=== PATIENT | male | born 1945 | race African-American/Black ===

== ENCOUNTER 2016-06-17 16:10 | Observation (INO) | payer MEDICARE, OTHER ==
[~2016-06-17 16:10] MED LIST: ALDACTONE25 MG PO; ASPIRIN325 MG PO; BENADRYL25 MG PO; BYSTOLIC5 MG PO; GARLIC1 CAP PO; GEMFIBROZIL600 MG PO; K-DUR20 MEQ PO; K-TAB10 MEQ PO; KLOR-CON 1010 MEQ PO; LEVAQUIN750 MG PO; MOBIC7.5 MG PO; MULTIPLE VITAMI1 TA1 PO; NEXIUM40 MG PO; OMEGA 3 FISH OI1 CAP PO; PROVENTIL/2.5 MG/3 M INH; TYLENOL325 MG PO; VITAMIN D31000 UNIT PO; ZOCOR40 MG PO
[2016-06-17 17:04] LABS: HEMATOCRIT 39.5 % (42.0-54.0); MCH 33.8 pg (26.0-34.0); MCHC 35.4 g/dL (31.0-37.0); MCV 95.4 fL (80.0-100.0); MEAN PLATELET VOLUME 10.8 fL (7.4-10.4); PLATELET COUNT 161 10x3/uL (130-400); RBC 4.14 10x6/uL (4.20-6.10); RDW 12.9 % (11.5-14.5); WBC 2.7 10x3/uL (4.8-10.8)
[2016-06-17 17:30] LABS: ALBUMIN 3.6 g/dL (3.4-5.0); ALKALINE PHOSPHATASE 62 U/L (46-116); ALT (SGPT) 34 U/L (10-68); BILIRUBIN - TOTAL 0.46 mg/dL (0.2-1.3); CALC OSMOLALITY 283 mosm/kg (275-300); CALCIUM 10.3 mg/dL (8.5-10.1); CARBON DIOXIDE 24.4 mmol/L (21.0-32.0); CHLORIDE - SERUM 104 mmol/L (98-107); CREATININE - SERUM 1.5 mg/dL (0.6-1.3); GLUCOSE 92 mg/dL (74-106); POTASSIUM - SERUM 3.2 mmol/L (3.5-5.1); PROTEIN - SERUM 7.9 g/dL (6.4-8.2); SODIUM 142 mmol/L (136-145); UREA NITROGEN 14 mg/dL (7-18); eGFR NON AFRICAN AMERICAN 49 mL/min (90-120)
[2016-06-17 17:41] LABS: CHOL - HDL RATIO 2.6 ratio (2.3-4.9); CHOLESTEROL, TOTAL 248 mg/dL (0-200); CKMB 0.3 U/L (0.0-3.6); CREATINE KINASE 71 UL (21-232); HDL CHOLESTEROL 95 mg/dL (32-96); LDL CHOLESTEROL 128 mg/dL (0-100); LDL-HDL RATIO 1.3 ratio (1.5-3.5); TRIGLYCERIDE 128 mg/dL (30-200); TROPONIN-I < 0.017 ng/mL (0.000-0.060)
[2016-06-17 17:51] LABS: BASOPHILS 1 % (0-2); LYMPHOCYTES 30 % (15-50); MONOCYTES 3 % (2-11); NEUTROPHILS 66 % (40-80); PLATELET ESTIMATE DECREASED
[2016-06-17 18:01] LABS: APPEARANCE CLEAR (CLEAR); BILIRUBIN NEGATIVE (NEGATIVE); COLOR YELLOW (YELLOW); GLUCOSE NEGATIVE (NEGATIVE); KETONE NEGATIVE (NEGATIVE); LEUKOCYTE ESTERASE TRACE (NEGATIVE); NITRITE NEGATIVE (NEGATIVE); PROTEIN TRACE mg/dL (NEGATIVE); UROBILINOGEN NORMAL (NORMAL)
[2016-06-17 18:02] LABS: BACTERIA MODERATE /hpf (NONE SEEN); EPITHELIAL CELLS 0-5 /hpf (0-5); HYALINE CAST 0-5 /lpf (NONE SEEN); MUCUS >1+ /lpf (NONE SEEN); RED CELLS - URINE 0-5 /hpf (0-5); WHITE CELLS - URINE 0-5 /hpf (0-5)
[2016-06-17] MEDS ORDERED: PLAVIX75 MG PO (23:46)
[2016-06-18 05:48] LABS: TROPONIN-I 0.028 ng/mL (0.000-0.060)
== END 2016-06-18 11:50 | disposition home or self-care (01) ==
LOC: D.ER 16:10 → D.M2 22:09
PROVIDERS: Emergency Medicine; Nurse Practitioner Family; ADMIT Internal Medicine Interventional Cardiology
DX: R07.89 Other chest pain (principal); I10 Essential (primary) hypertension; Z86.73 Personal history of transient ischemic attack (TIA), and cerebral infarction without residual deficits; K21.9 Gastro-esophageal reflux disease without esophagitis; Z87.891 Personal history of nicotine dependence

== ENCOUNTER → 2016-07-15 08:34 | Outpatient (CLI) | payer MEDICARE, OTHER ==
[2016-06-18 00:12] VITALS: BMI 25.8
[~2016-07-15 08:34] MED LIST changes: +PLAVIX75 MG PO
== END | disposition home or self-care (01) ==
LOC: D.RAD 08:34
DX: K59.00 Constipation, unspecified (principal)

== ENCOUNTER 2017-04-18 17:28 | Emergency (ER) | payer MEDICARE, OTHER ==
[2016-06-18 00:12] VITALS: BMI 25.8
[2017-04-18 18:35] LABS: APPEARANCE CLEAR (CLEAR); BILIRUBIN NEGATIVE (NEGATIVE); COLOR YELLOW (YELLOW); GLUCOSE NEGATIVE (NEGATIVE); KETONE NEGATIVE (NEGATIVE); NITRITE NEGATIVE (NEGATIVE); PROTEIN TRACE mg/dL (NEGATIVE); SPECIFIC GRAVITY 1.015 (1.005-1.020); UROBILINOGEN NORMAL (NORMAL)
[2017-04-18 18:37] LABS: HEMATOCRIT 37.8 % (42.0-54.0); HEMOGLOBIN 13.5 g/dL (13.5-17.5); MCH 34.4 pg (26.0-34.0); MCHC 35.7 g/dL (31.0-37.0); MCV 96.4 fL (80.0-100.0); MEAN PLATELET VOLUME 10.3 fL (7.4-10.4); PLATELET COUNT 137 10x3/uL (130-400); RBC 3.92 10x6/uL (4.20-6.10); WBC 2.9 10x3/uL (4.8-10.8)
[2017-04-18 18:52] LABS: ALBUMIN 3.8 g/dL (3.4-5.0); BILIRUBIN - TOTAL 0.74 mg/dL (0.2-1.3); CALCIUM 9.7 mg/dL (8.5-10.1); CARBON DIOXIDE 23.6 mmol/L (21.0-32.0); CREATININE - SERUM 1.4 mg/dL (0.6-1.3); POTASSIUM - SERUM 3.6 mmol/L (3.5-5.1); PROTEIN - SERUM 8.1 g/dL (6.4-8.2)
[2017-04-18 19:11] LABS: EOSINOPHILS 5 % (0-7); LYMPHOCYTES 34 % (15-50); MONOCYTES 3 % (2-11); NEUTROPHILS 58 % (40-80); PLATELET ESTIMATE NORMAL
== END 2017-04-18 22:53 | disposition home or self-care (01) ==
LOC: D.ER 17:28
PROVIDERS: Family Medicine
DX: R53.1 Weakness (principal); R00.0 Tachycardia, unspecified; I44.0 Atrioventricular block, first degree; I49.3 Ventricular premature depolarization

== ENCOUNTER 2017-04-22 11:10 | Outpatient (CLI) | payer MEDICARE, OTHER ==
--- NOTE | ~2017-04-22 | HEMODYNAMI ---
PATIENT:LIAM KRAUS MEDICAL RECORD: [id number] : 43 LOCATION:[facility] ([place] ADMISSION DATE: 04/22/17 Generatedon:04/22/201713:44 Patient name: LIAM KRAUS Patient #: [id number] SSN: DO B: 1945 Date of study: 04/22/2017 Page: Of Hemodynamic Procedure Report Patient Data Patient Demographics Procedure consent was obtained First Name: LIAM Gender: Male Last Name: NAYANA : 1945 Middle Initial: A Age: 71 year(s) Patient #: [id number] Race: Black Additional ID: [id number] Contact details [address]: [address] [place] [address] State: [place] City: [place] Zip code: [address] Past Medical History Allergies: No known allergies Admission Admission Data Admission Date: 04/22/2017 Admission Time: 9:07 Admit Source: Other Procedure Procedure Types Cath Procedure Diagnostic Procedure LHC LH w/Coronaries Sedation Charges Moderate Sedation up to 30 minutes PCI Procedure Coronary Stent Coronary Stent Initial Procedure Description Procedure Date Procedure Date: 04/22/2017 Procedure Start Time: 13:07 Procedure End Time: 13:42 Procedure Staff Name Function Tesfaye Rutherford MD Performing Physician Sade Lawrence RT Monitor Jorge Luis Meraz RT Scrub Anthony Haywood RN Nurse Procedure Data Cath Procedure Fluoroscopy Diagnostic fluoroscopy Total fluoroscopy Time: 5.8 time: 5.8 min min Diagnostic fluoroscopy Total fluoroscopy dose: 861 dose: 861 mGy mGy Contrast Material Contrast Material Type Amount (ml) Isovue 300 108 Entry Location Entry Primary Successful Side Size Upsize Upsize Entry Closure Smiley ccessful Closure Location (Fr) 1 (Fr) 2 (Fr) Remarks Device Remarks Radial Right 6 Fr Mechanical TR band artery Short Compression Femoral Right 5 Fr 6 Fr Exoseal artery Short Estimated blood loss: 10 ml Diagnostic catheters Device Type Used For End Catheter Placement DIAGNOSTIC Chepe 110cm Procedure 5Fr catheter ([id number]) MULTIPACK JL 4.0 5Fr Procedure catheter MULTIPACK 3DRC 5Fr Procedure catheter MULTIPACK Pigtail 5 Fr Ventriculography catheter Procedure Complications No complications Procedure Medications Medication Administration Route Dosage Oxygen NC 2 l/min Lidocaine 2% added to field 20 Heparin Flush Bag added to field 2 bags (1000units/500ml NS) 0.9% NaCl I.V. 100 ml/hr Radial Cocktail I.A. 1 syringe (Verapomil 2mg/Nitro 400mcg/Heparin 1500units) Versed I.V. 1 mg Fentanyl I.V. 50 mcg Versed I.V. 1 mg Fentanyl I.V. 50 mcg Angiomax (bolus) I.V. 13 ml Angiomax Drip I.V. drip 29.4 ml/hr (250mg/50ml NS) (Standard) Lopressor I.V. 5 mg Angiomax Drip 29.4 ml/hr (250mg/50ml NS) (Standard) Hemodynamics Rest Heart Rate: 66 (bpm) Pressure Samples Time Site Value (mmHg) Purpose Heart Use Rate(bpm) 13:20 LV 87/-4,3 EDP 58 Snapshots Pre Cath Intra NCS Post Cath Vital Signs Time Heart Resp SPO2 etCO2 NIBP (mmHg) Rhythm Pain Sedation Rate (ipm) (%) (mmHg) Status Level (bpm) 12:46:00 93 23 98 25.6 181/109(165) NSR 0 (11) 10(A) , No pain 12:50:24 65 16 100 30.9 148/88(123) NSR 0 (11) 10(A) , No pain 12:54:42 65 15 100 34 133/80(107) NSR 0 (11) 10(A) , No pain 12:58:58 64 14 100 33.2 144/74(121) NSR 0 (11) 10(A) , No pain 13:03:12 64 14 100 30.9 148/87(120) NSR 0 (11) 10(A) , No pain 13:07:32 60 14 100 32.4 145/74(125) NSR 0 (11) 10(A) , No pain 13:11:57 71 14 98 30.2 89/60(75) NSR 0 (11) 9(A) , No pain 13:15:56 100 11 97 24.9 103/69(84) NSR 0 (11) 10(A) , No pain 13:19:58 68 11 98 30.9 121/78(93) NSR 0 (11) 10(A) , No pain 13:24:08 66 11 99 30.9 121/78(97) NSR 0 (11) 10(A) , No pain 13:28:16 96 18 99 31.7 119/83(99) NSR 0 (11) 10(A) , No pain 13:32:23 76 15 100 28.7 120/76(95) NSR 0 (11) 10(A) , No pain 13:36:27 96 14 100 29.4 129/92(114) NSR 0 (11) 10(A) , No pain 13:40:37 63 14 100 30.2 133/85(114) NSR 0 (11) 10(A) , No pain Medications Time Medication Route Dose Verified Delivered Reason Notes Effectiveness by by 12:50:00 Heparin Flush added to field 2 bags Tesfaye Tesfaye used for Bag Krish Rutherford MD procedure (1000units/500ml NS) 12:50:09 0.9% NaCl I.V. 100 Tesfaye Buffie Per physi ayad ml/hr Krish Haywood RN, MD 12:50:48 Oxygen NC 2 l/min Tesfaye Buffie used for Krish Haywood RN procedure 12:50:54 Lidocaine 2% added to field 20ml Tesfaye Tesfaye for local vial Krish Rutherford MD anesthetic 13:04:06 Versed I.V. 1 mg Tesfaye Buffie for sedat ion Krish Haywood RN, MD 13:04:13 Fentanyl I.V. 50 mcg Tesfaye Buffie for sedat ion Krish Haywood RN, MD 13:09:15 Radial Cocktail I.A. 1 Tesfaye Tesfaye for (Verapomil syringe Krish Rutherford MD vasodilation 2mg/Nitro MD 400mcg/Heparin 1500units) 13:15:09 Versed I.V. 1 mg Tesfaye Buffie for sedat ion Krish Haywood RN, MD 13:15:13 Fentanyl I.V. 50 mcg Tesfaye Buffie for sedat ion Krish Haywood RN, MD 13:24:44 Angiomax (bolus) I.V. 13 ml Tesfaye Buffie for Krish Haywood RN anticoagulation 13:25:44 Angiomax Drip I.V. drip 29.4 Tesfaye Buffie for (250mg/50ml NS) ml/hr Krihs Haywood RN anticoagulation (Standard) 13:34:55 Lopressor I.V. 5 mg Tesfaye Buffie Per physi ayad Krish Haywood RN, MD 13:39:34 Angiomax Drip I.V. 29.4 Tesfaye Buffie for (250mg/50ml NS) drip-discontinued ml/hr Krish Haywood RN anticoagulation (Standard) Procedure Log Time Note 12:13:20 Informed consent obtained and on chart 12:13:23 Admit Source: Other 12:13:46 Anthony Haywood RN sent for patient. Start room use. 12:13:48 Time tracking: Regular hours 12:13:51 Plan of Care:Hemodynamics will remain stable., Cardiac rhythm will remain stable., Comfort level will be maintained., Respiratory function will remain adequate., Patient/ family verbilizes understanding of procedure., Procedure tolerated without complication., Recovers from procedure without complications.. 12:14:06 H&P Date Dictated: 04/22/2017 New H&P dictated by physician.. 12:34:31 Patient received from ED to CCL 2 Alert and oriented. Tansferred to table in Supine position. 12:34:32 Warm blankets applied, and annalisa hugger turned on for patient comfort. 12:34:32 Correct patient and procedure confirmed by team. 12:34:33 ECG and BP/O2 sat monitors applied to patient. 12:34:35 Pre-procedure instructions explained to patient. 12:34:35 Pre-op teaching completed and patient verbalized understanding. 12:34:36 Family in waiting room. 12:34:40 Patient NPO since Breakfast. 12:35:51 Patient allergic to No known allergies 12:35:53 Is the patient allergic to Iodine/contrast media? No. 12:35:59 Is patient on blood thinner?Yes 12:36:01 ACC The patient was administered the following blood thiners within the last 24 hours: ACCPlavix 12:36:03 Patient diabetic? No. 12:36:05 Previous problem with sedation/anesthesia? No ? 12:36:06 Snore? Yes 12:36:07 Sleep apnea? No 12:36:08 Deviated septum? No 12:36:08 Opens mouth fully? Yes 12:36:09 Sticks out tongue? Yes 12:36:11 Airway obstruction? No ? 12:36:16 Dentures? Yes partial in tight 12:42:27 Pre procedure: right dorsailis pedis pulse 2+ Normal; easily identifiable; not easily obliterated 12:42:29 Modified Benjamin's test Ulnar < 7 seconds 12:42:31 Patient pain scale 0/10 ?. 12:42:41 IV patent on arrival in left antecubital with 0.9% NaCl at [facility]. 12:42:46 Lab results completed and on chart. 12:42:50 Right Radial & Right Groin area was prepped with chlora-prep and draped in sterile fashion 12:42:51 Alarms reviewed by R. N. 12:42:51 Sharps counted by scrub and verified by R.N. 12:42:55 Use device set Radial Dx or PCI 12:42:56 ACIST Syringe (04118) opened to sterile field. 12:42:56 Medline Cath Pack ([id number]) opened to sterile field. 12:42:57 Bag Decanter (2002S) opened to sterile field. 12:42:58 SHEATH 6FR Slender ([id number]) opened to sterile field. 12:42:58 DIAGNOSTIC WIRE .035 260cm J wire (075730) opened to sterile field. 12:42:59 ACIST Hand Control (57061) opened to sterile field. 12:42:59 ACIST Manifold (96061) opened to sterile field. 12:43:00 Tegaderm 4 x 4 (1626W) opened to sterile field. 12:43:01 MBrace Wrist Support ([id number]) opened to sterile field. 12:44:45 Vital chart was started 12:44:48 Rhythm: sinus rhythm 12:44:50 Full Disclosure recording started 12:44:53 Baseline sample Acquired. 12:50:00 Heparin Flush Bag (1000units/500ml NS) 2 bags added to field was administered by Tesfaye Rutherford MD; used for procedure; 12:50:09 0.9% NaCl 100 ml/hr I.V. was administered by Anthony Haywood RN; Per physician; 12:50:48 Oxygen 2 l/min NC was administered by Anthony Haywood RN; used for procedure; 12:50:54 Lidocaine 2% 20ml vial added to field was administered by Tesfaye Rutherford MD; for local anesthetic; 12:59:31 Zero performed for pressure channel P1 12:59:49 Zero performed for pressure channel P1 12:59:58 Physician paged 13:03:20 Physician arrived 13:03:21 --------ALL STOP TIME OUT------ 13:03:22 Final Timeout: patient, procedure, and site verified with staff and physician. All members of the team are in agreement. 13:03:27 Right Radial & Right Groin site verified by team. 13:03:32 Physical assessment completed. ASA score P 2 - A patient with mild systemic disease as per Tesfaye Rutherford MD. 13:03:36 Sedation plan: IV Moderate Sedation Medication:Versed, Fentanyl 13:03:54 Procedure started. 13:04:06 Versed 1 mg I.V. was administered by Anthony Haywood RN; for sedation; 13:04:13 Fentanyl 50 mcg I.V. was administered by Anthony Haywood RN; for sedation; 13:07:05 Local anesthetic to right radial artery with Lidocaine 2% by Tesfaye Rutherford MD.INITIAL ACCESS ONLY 13:08:23 A 6 Fr Short sheath was inserted into the Right Radial artery 13:09:15 Radial Cocktail (Verapomil 2mg/Nitro 400mcg/Heparin 1500units) 1 syringe I.A. was administered by Tesfaye Rutherford MD; for vasodilation; 13:09:20 A DIAGNOSTIC Chepe 110cm 5Fr catheter (905245) was advanced over the wire and used for Procedure. 13:11:25 Catheter removed. 13:11:55 unable to cannulate through the arm. 13:12:21 Local anesthetic to right femoral artery with Lidocaine 2% by Tesfaye Rutherford MD.ADDITIONAL ACCESS 13:12:27 SHEATH 5FR [place] (HQE437) opened to sterile field. 13:12:49 Use device set Multipack Set 13:12:51 DIAGNOSTIC Multipack 5Fr catheter set ([id number]) opened to sterile field. 13:13:13 Access obtained with 4Fr micropunture. 13:13:25 A 5 Fr sheath was inserted into the Right Femoral artery 13:13:56 MICROPUNCTURE 4FR Cook (Z97863) opened to sterile field. 13:14:46 A MULTIPACK JL 4.0 5Fr catheter was advanced over the wire and used for Procedure. 13:14:52 LCA angiography performed. 13:15:09 Versed 1 mg I.V. was administered by Anthony Haywood RN; for sedation; 13:15:13 Fentanyl 50 mcg I.V. was administered by Anthony Haywood RN; for sedation; 13:16:34 Catheter removed. 13:16:44 A MULTIPACK 3DRC 5Fr catheter was advanced over the wire and used for Procedure. 13:16:50 RCA angiography performed. 13:19:35 Catheter removed. 13:19:43 A MULTIPACK Pigtail 5 Fr catheter was advanced over the wire and used for Ventriculography. 13:19:56 LV gram done using DUPREE 13:21:22 EF : 50 % 13:21:24 Catheter removed. 13:23:00 BMW 190cm [place] 2 J wire ([id number]) opened to sterile field. 13:23:01 COPILOT Valve Control (1364919) opened to sterile field. 13:23:01 GUIDE 6FR XBLAD 4.0 catheter ([id number]) opened to sterile field. 13:23:02 INFLATOR Merit BasixCompak (FQ6731) opened to sterile field. 13:23:03 SHEATH 6FR [place] (YJP484) opened to sterile field. 13:23:16 Proceeding to intervention. 13:23:29 Sheath upsized to a 6 Fr Short. 13:23:45 6 Fr XBLAD 4 guide catheter was inserted over the wire 13:24:44 Angiomax (bolus) 13 ml I.V. was administered by Anthony Haywood RN; for anticoagulation; 13:25:18 BMW wire advanced. 13:25:44 Angiomax Drip (250mg/50ml NS) (Standard) 29.4 ml/hr I.V. drip was administered by Anthony Haywood RN; for anticoagulation; 13:28:15 Inflation number: 1 A EUPHORA 3.0 x 20 Balloon ([id number]) was prepped and advanced across the Mid LAD, then inflated to 8 PASCUAL for 0:20 (min:sec). 13:28:44 Balloon removed over the wire. 13:32:33 Inflation Number: 1 A JACINTO RX 4.0 x 22 stent ([id number]) was prepped and advanced across the Mid LAD1. The stent was deployed at 13 PASCUAL for 0:10 (min:sec). 13:32:44 Stent catheter was removed intact over wire. 13:33:29 Wire removed. 13:33:39 Guide catheter removed. 13:34:55 Lopressor 5 mg I.V. was administered by Anthony Haywood RN; Per physician; 13:36:23 TR BAND Standard ([id number]) opened to sterile field. 13:36:36 EXOSEAL 6Fr (EX600) opened to sterile field. 13:36:59 Sheath removed intact; hemostasis achieved with Exoseal to the Right Femoral artery. 13:38:32 Sheath removed intact; hemostasis achieved with Mechanical Compression to the Right Radial artery. 13:38:35 Procedure ended.(Physican Out) 13:38:48 Fluoroscopy time 05.80 minutes. 13:38:53 Flurop Dose total: 861 13:38:53 Fluoroscopy dose: 861 mGy 13:38:58 Contrast amount:Isovue 300 108ml. 13:39:00 Sharps counted by scrub and verified by R.N. 13:39:07 TR band inflated with 10cc of air. 13:39:12 Insertion/operative site no bleeding no hematoma. 13:39:34 Angiomax Drip (250mg/50ml NS) (Standard) 29.4 ml/hr I.V. drip-discontinued was administered by Anthony Haywood RN; for anticoagulation; 13:40:10 Post-op/insertion site Right Femoral artery dressed using a 4 x 4 and Tegaderm. 13:40:18 Post right femoral artery:stable 13:40:21 Post Procedure Pulses reassessed and unchanged 13:40:25 Post-procedure physical assessment completed. ASA score P 2 - A patient with mild systemic disease as per Tesfaye Rutherford MD. 13:40:29 Post procedure rhythm: sinus rhythm 13:40:32 Estimated blood loss: 10 ml 13:40:33 Post procedure instruction explained to patient.Patient verbalizes understanding. 13:41:39 Procedure type changed to Cath procedure, Diagnostic procedure, LHC, LHC w/Coronaries, Sedation Charges, Moderate Sedation up to 30 minutes, PCI procedure, Coronary Stent, Coronary Stent Initial 13:41:40 Procedure and supply charges have been captured, reviewed, submitted and are correct. 13:42:13 Procedure Complication : No complications 13:42:15 Vital chart was stopped 13:42:16 See physician's report for complete and final results. 13:42:18 Report given to Pre/Post Procedure Room. 13:42:21 Patient transfered to Pre/Post Procedure Room with Stretcher. 13:42:24 Procedure ended. 13:42:24 Full Disclosure recording stopped 13:42:27 End room use (Document Last) Intervention Summary Intervention Notes Time ActionType Lesion and Equipment Used Action# Pressure Duration Attributes 13:28:15 Inflate Mid LAD EUPHORA 3.0 x 1 8 00:20 balloon 20 Balloon ([id number]) 13:32:33 Place stent Mid LAD1 JACINTO RX 4.0 x 1 13 00:10 22 stent ([id number]) Device Usage Item Name Manufacture Quantity Catalog [facility] Lot# / Number Charge Number Stock Stock Serial# Code ACIST Syringe Acist 1 40350 220727 670828 211812 20 (82592) Medical Systems Inc Medline Cath Cardinal 1 [id number] 954543 21995 399301 5 [facility] ([id number]) Bag Decanter Microtek 1 2001S 457998 43327 281490 5 (2001S) Medical Inc. SHEATH 6FR Terumo 1 [id number] 912705 630839 524631 40 Slender ([id number]) DIAGNOSTIC [address] 1 103313 408426 847362 437068 30 WIRE .035 260cm J wire (148744) ACIST Hand Acist 1 56633 470018 115228 966515 5 Control Medical (84173) Systems Inc ACIST Manifold Acist 1 48825 837167 086012 941501 5 (93783) Medical Systems Inc Tegaderm 4 x 4 3M 1 1626W 593893 975588 810688 5 (1626W) MBrace Wrist Advanced 1 140-0250-00 366219 56499 445166 5 Support Vascular ([id number]) Dynamics DIAGNOSTIC Terumo 1 40-5023 005235 671032 624179 5 Chepe 110cm 5Fr catheter (661413) SHEATH 5FR Terumo 1 EMA258 381154 852603 086601 40 [place] (XHZ008) DIAGNOSTIC Cardinal 1 DG6917 336136 52958 821981 30 Multipack 5Fr Health catheter set (IU8683) MICROPUNCTURE Cook Medical 1 I83130 685192 155670 080885 5 4FR Cook (W78259) MULTIPACK JL Cardinal 1 874084 5 4.0 5Fr Health catheter MULTIPACK 3DRC Cardinal 1 801842 5 5Fr catheter Health MULTIPACK Cardinal 1 086869 5 Pigtail 5 Fr Health catheter BMW 190cm [place] 1 [id number] 937958 48744 641951 5 [place] 2 J Vascular wire (8552358E) COPILOT Valve [place] 1 6592259 921978 439036 378969 5 Control Vascular (3107285) GUIDE 6FR Cardinal 1 12642749 150002 611321 584530 3 XBLAD 4.0 Health catheter (52737332) INFLATOR Merit Merit 1 IS5208 801508 086606 330678 15 [facility] (JP2895) SHEATH 6FR Terumo 1 NPR705 990057 612584 884430 40 [place] (ZRW333) EUPHORA 3.0 x Medtronic 1 [id number] 320490 095321 257599 5 [id number] 20 Balloon (DSV4559J) JACINTO RX 4.0 x Medtronic 1 [id number] 755223 3861067 301705 5 [id number] 22 stent ([id number]) TR BAND Terumo 1 [id number] 523472 017341 119854 40 Standard ([id number]) EXOSEAL 6Fr Cardinal 1 EX600 250640 331499 541512 10 (EX600) Health Signature Audit [place] Time Signature Unsigned Intra-Procedure 04/22/2017 Sade Lawrence 1:44:24 PM RT(R) Signatures Monitor : Sade Lawrence Signature : RT Date : Time : [facility] [address] [place] [address]
[2017-04-22 09:45] LABS: BASOPHILS 0.5 % (0-2); EOSINOPHILS 4.4 % (0-7); HEMATOCRIT 35.4 % (42.0-54.0); HEMOGLOBIN 12.7 g/dL (13.5-17.5); IMMATURE GRANULOCYTES 0.2 % (0-5); LYMPHOCYTES 22.1 % (15-50); MCH 34.3 pg (26.0-34.0); MCHC 35.9 g/dL (31.0-37.0); MCV 95.7 fL (80.0-100.0); MEAN PLATELET VOLUME 10.8 fL (7.4-10.4); MONOCYTES 13.8 % (2-11); PLATELET COUNT 128 10x3/uL (130-400); RDW 11.8 % (11.5-14.5); WBC 4.1 10x3/uL (4.8-10.8)
[2017-04-22 09:49] LABS: APTT 29.4 SECONDS (22.8-39.4); INR 1.03 (0.85-1.17); PROTIME 13.1 SECONDS (11.6-15.0)
[2017-04-22 09:53] LABS: ALBUMIN 3.7 g/dL (3.4-5.0); ALKALINE PHOSPHATASE 70 U/L (46-116); ALT (SGPT) 43 U/L (10-68); CALC OSMOLALITY 274 mosm/kg (275-300); CALCIUM 9.7 mg/dL (8.5-10.1); CARBON DIOXIDE 22.3 mmol/L (21.0-32.0); CHLORIDE - SERUM 102 mmol/L (98-107); CREATININE - SERUM 1.2 mg/dL (0.6-1.3); GLUCOSE 93 mg/dL (74-106); POTASSIUM - SERUM 3.3 mmol/L (3.5-5.1); PROTEIN - SERUM 8.1 g/dL (6.4-8.2); SODIUM 137 mmol/L (136-145); UREA NITROGEN 16 mg/dL (7-18); eGFR NON AFRICAN AMERICAN 63 mL/min (90-120)
[2017-04-22 09:58] LABS: CHOLESTEROL, TOTAL 187 mg/dL (0-200); CKMB 0.4 U/L (0.0-3.6); CREATINE KINASE 98 UL (21-232); HDL CHOLESTEROL 63 mg/dL (32-96); LDL CHOLESTEROL 88 mg/dL (0-100); LDL-HDL RATIO 1.4 ratio (1.5-3.5); TRIGLYCERIDE 182 mg/dL (30-200); TROPONIN-I < 0.017 ng/mL (0.000-0.060)
[2017-04-22 11:38] LABS: AMYLASE - SERUM 78 U/L (25-115); LIPASE 401 U/L (73-393); PRO BNP 85 pg/mL (0-125)
[2017-04-22 11:53] LABS: APPEARANCE CLEAR (CLEAR); BILIRUBIN NEGATIVE (NEGATIVE); COLOR YELLOW (YELLOW); GLUCOSE NEGATIVE (NEGATIVE); KETONE NEGATIVE (NEGATIVE); NITRITE NEGATIVE (NEGATIVE); PROTEIN NEGATIVE (NEGATIVE); UROBILINOGEN NORMAL (NORMAL)
[2017-04-22 12:18] VITALS: BMI 25.8
== END 2017-04-22 18:17 | disposition home or self-care (01) ==
LOC: D.CATH 11:10 → EDSTATUS 12:00 → D.CATH 18:17
PROVIDERS: Emergency Medicine; Nurse Practitioner Family
DX: I20.0 Unstable angina (principal); R07.9 Chest pain, unspecified; I10 Essential (primary) hypertension; Z86.73 Personal history of transient ischemic attack (TIA), and cerebral infarction without residual deficits
CPT/HCPCS: 93458; C9600

== ENCOUNTER 2017-05-22 13:44 | Emergency (ER) | payer MEDICARE, OTHER ==
[2017-05-22 14:26] LABS: BASOPHILS 0.7 % (0-2); EOSINOPHILS 2.7 % (0-7); HEMATOCRIT 39.2 % (42.0-54.0); IMMATURE GRANULOCYTES 0.3 % (0-5); LYMPHOCYTES 20.3 % (15-50); MCH 34.4 pg (26.0-34.0); MCHC 35.7 g/dL (31.0-37.0); MCV 96.3 fL (80.0-100.0); MEAN PLATELET VOLUME 11.5 fL (7.4-10.4); MONOCYTES 18.6 % (2-11); NEUTROPHILS 57.4 % (40-80); PLATELET COUNT 181 10x3/uL (130-400); RBC 4.07 10x6/uL (4.20-6.10); RDW 12.3 % (11.5-14.5)
[2017-05-22 15:05] LABS: ALBUMIN 3.6 g/dL (3.4-5.0); ALKALINE PHOSPHATASE 72 U/L (46-116); ALT (SGPT) 32 U/L (10-68); BILIRUBIN - TOTAL 0.55 mg/dL (0.2-1.3); CALC OSMOLALITY 280 mosm/kg (275-300); CALCIUM 8.8 mg/dL (8.5-10.1); CHLORIDE - SERUM 103 mmol/L (98-107); CREATININE - SERUM 1.3 mg/dL (0.6-1.3); GLUCOSE 90 mg/dL (74-106); POTASSIUM - SERUM 3.5 mmol/L (3.5-5.1); PROTEIN - SERUM 7.8 g/dL (6.4-8.2); SODIUM 141 mmol/L (136-145); UREA NITROGEN 13 mg/dL (7-18); eGFR NON AFRICAN AMERICAN 58 mL/min (90-120)
[2017-05-22 15:14] LABS: CHOL - HDL RATIO 2.5 ratio (2.3-4.9); CHOLESTEROL, TOTAL 184 mg/dL (0-200); CKMB 0.3 U/L (0.0-3.6); CREATINE KINASE 54 UL (21-232); HDL CHOLESTEROL 74 mg/dL (32-96); LDL CHOLESTEROL 86 mg/dL (0-100); LDL-HDL RATIO 1.2 ratio (1.5-3.5); TRIGLYCERIDE 124 mg/dL (30-200)
[2017-05-22 15:17] LABS: TROPONIN-I < 0.017 ng/mL (0.000-0.060)
== END 2017-05-22 16:36 | disposition home or self-care (01) ==
LOC: D.ER 13:44
PROVIDERS: Emergency Medicine
DX: R07.9 Chest pain, unspecified (principal); I10 Essential (primary) hypertension; Z86.79 Personal history of other diseases of the circulatory system; R00.0 Tachycardia, unspecified; I49.3 Ventricular premature depolarization; K21.9 Gastro-esophageal reflux disease without esophagitis

== ENCOUNTER 2017-10-10 20:58 | Inpatient (IN) | payer MEDICARE, OTHER ==
[~2017-10-10] VITALS: Ht 177.8 cm; Wt 79.7 kg
--- NOTE | ~2017-10-10 | HEMODYNAMI ---
PATIENT:LIAM KRAUS MEDICAL RECORD: [id number] : 43 LOCATION:[facility] D.2314 ADMISSION DATE: 10/10/17 Generatedon:10/11/20174:50 Patient name: LIAM KRAUS Patient #: [id number] SSN: DO B: 1945 Date of study: 10/11/2017 Page: Of Hemodynamic Procedure Report Patient Data Patient Demographics Procedure consent was obtained First Name: LIAM Gender: Male Last Name: NAYANA : 1945 Middle Initial: A Age: 71 year(s) Patient #: [id number] Race: Black Additional ID: [id number] Contact details [address]: [address] [place] [address] State: [place] City: [place] Zip code: [address] Past Medical History Allergies: No known allergies Admission Admission Data Admission Date: 10/10/2017 Admission Time: 23:32 Room #: [facility]4 Height (in.): 70 BSA: 1.99 (m2) Height (cm.): 177.8 BMI: 25.68 (kg/m2) Weight (lbs.): 179 Weight (kg.): 81.19 Procedure Procedure Types Cath Procedure Peripheral Cath Diagnostic Procedure Cath Peripheral Abd/Extremity Visceral/Mesenteric Mesenteric Arteriogram (Abd Artery) Procedure Description Procedure Date Procedure Date: 10/11/2017 Procedure Start Time: 3:49 Procedure Staff Name Function Matt Potts MD Performing Physician Liat Monreal RT Supervisor Electronics Assembly Ladonna Singh RN Nurse [place] Dewey RT Scrub Procedure Data Cath Procedure Fluoroscopy Diagnostic fluoroscopy Total fluoroscopy Time: 9.7 time: 9.7 min min Diagnostic fluoroscopy Total fluoroscopy dose: 985 dose: 985 mGy mGy Contrast Material Contrast Material Type Amount (ml) Isovue 300 70 Entry Location Entry Primary Successful Side Size Upsize Upsize Entry Closure Succes sful Closure Location (Fr) 1 (Fr) 2 (Fr) Remarks Device Remarks Femoral Exoseal artery Diagnostic catheters Device Type Used For End Catheter Placement Merit Impress 5Fr SIM 1 Catheter ([id number]) Procedure Medications Medication Administration Route Dosage Versed I.V. 0.5 mg Fentanyl I.V. 25 mcg Oxygen etCO2 Nasal cannula 3 l/min Lidocaine 1% added to field 20 Heparin Flush Bag added to field 3 bags (1000units/500ml NS) Glucagon I.V. 1 mg Fentanyl I.V. 25 mcg Hemodynamics Rest BSA: 1.99 (m2) O2 Consumption: Estimated: 243.9 (ml/min) O2 Consumption indexed: Estimated:122.56 (ml/min/m) Heart Rate: 89 (bpm) Snapshots Pre Cath Intra NCS Post Cath Vital Signs Time Heart Resp SPO2 etCO2 NIBP Rhythm Pain Sedation Rate (ipm) (%) (mmHg) (mmHg) Status Level (bpm) 3:42:52 21 13.5 110/68(95) NSR 0 (11) 10(A) , No pain 3:47:08 85 30 118/71(91) NSR 0 (11) 10(A) , No pain 3:51:30 87 22 99 19.5 104/63(87) NSR 0 (11) 10(A) , No pain 3:55:44 88 27 25.5 114/60(82) NSR 0 (11) 8(A) , No pain 4:00:00 81 17 100 25.5 95/60(73) NSR 0 (11) 8(A) , No pain 4:04:10 79 15 100 28.5 111/67(90) NSR 0 (11) 8(A) , No pain 4:08:28 78 17 100 25.5 112/61(78) NSR 0 (11) 8(A) , No pain 4:12:44 78 15 100 26.2 102/54(73) NSR 0 (11) 8(A) , No pain 4:16:58 78 18 100 26.2 105/57(76) NSR 0 (11) 8(A) , No pain 4:21:14 78 17 100 26.2 109/60(79) NSR 0 (11) 8(A) , No pain 4:25:28 77 13 100 27 108/57(84) NSR 0 (11) 8(A) , No pain 4:29:42 76 15 100 26.9 102/58(68) NSR 0 (11) 8(A) , No pain 4:33:58 75 20 100 27.7 103/57(70) NSR 0 (11) 8(A) , No pain 4:38:12 76 17 100 26.9 97/55(69) NSR 0 (11) 8(A) , No pain 4:42:24 78 17 100 24.7 101/60(71) NSR 0 (11) 8(A) , No pain 4:46:38 76 18 100 24.7 111/65(85) NSR 0 (11) 8(A) , No pain Medications Time Medication Route Dose Verified Delivered Reason Notes Effect iveness by by 3:51:49 Versed I.V. 0.5 Matt Dougherty for Mostly mg Katlyn Singh RN sedation sleeping @ MD 4:28:17 3:52:01 Fentanyl I.V. 25 Matt Dougherty for Mostly mcg Katlyn Singh RN sedation sleeping @ MD 4:28:12 3:52:14 Oxygen etCO2 3 Matt Dougherty Per Nasal l/min Katlyn Singh RN protocol cannula 3:54:26 Lidocaine 1% added 20ml Matt Gutierrez Per to vial Katlyn tapia MD, MD 3:54:58 Heparin Flush added 3 Matt Gutierrez Per Bag to bags Katlyn smith (1000units/500ml field MD MENDOZA NS) 4:01:43 Glucagon I.V. 1 mg Matt Dougherty Per Katlyn Singh RN protocol 4:28:06 Fentanyl I.V. 25 Matt Dougherty for mcg Katlyn Singh RN sedation MD Procedure Log Time Note 3:13:01 Patient Height : 70 inches 3:13:07 Patient Weight : 179 lbs 3:13:33 Use device set IR Diagnostic 3:28:34 A Merit Impress 5Fr SIM 1 Catheter ([id number]) was advanced over the wire and used for . 3:28:36 TUBING Contrast Injection High Pressure ([id number]) opened to sterile field. 3:28:37 SHEATH 5FR [place] (YPQ833) opened to sterile field. 3:28:38 Micropuncture VSI 4FR kit opened to sterile field. 3:28:39 Tegaderm 4 x 4 (1626W) opened to sterile field. 3:28:41 Sterile Angiographic Pack opened to sterile field. 3:28:42 Bag Decanter (2001S) opened to sterile field. 3:28:43 ACIST Manifold (04696) opened to sterile field. 3:28:44 ACIST Hand Control (92204) opened to sterile field. 3:28:47 ACIST Syringe (81393) opened to sterile field. 3:28:53 Time tracking: Call back (After hours or weekends) 3:29:00 Plan of Care:Hemodynamics will remain stable., Cardiac rhythm will remain stable., Comfort level will be maintained., Respiratory function will remain adequate., Patient/ family verbilizes understanding of procedure., Procedure tolerated without complication., Recovers from procedure without complications.. 3:29:07 Patient received from ICU to IR Alert and oriented. Tansferred to table in Supine position. 3:29:14 Signed procedure consent form obtained from patient. 3:29:22 H&P Date Dictated: 10/11/2017 Emergent; H&P N/A. 3:29:24 Pre-procedure instructions explained to patient. 3:29:25 Pre-op teaching completed and patient verbalized understanding. 3:29:27 Family in waiting room. 3:29:38 Patient NPO since Dinner. 3:29:54 Is the patient allergic to Iodine/contrast media? No. 3:29:57 Is patient on blood thinner?Yes 3:30:03 ACC The patient was administered the following blood thiners within the last 24 hours: ACCAspirin, ACCPlavix 3:30:08 Patient diabetic? No. 3:30:11 3:30:11 ----Pre-sedation anethsthesia assessment.---- 3:30:16 Previous problem with sedation/anesthesia? No ? 3:30:19 Snore? Yes 3:30:20 Pre procedure: right posterior tibial pulse Doppler 3:30:21 Sleep apnea? Yes 3:30:26 Deviated septum? No 3:30:29 Opens mouth fully? Yes 3:30:34 Sticks out tongue? Yes 3:30:46 Airway obstruction? No but has heart stents 3:30:51 Dentures? No ? 3:31:15 Pre procedure: right dorsailis pedis pulse 1+ Palpable, but thready & weak; easily obliterated 3:31:25 IV patent on arrival in right forearm, left forearm with D5/.45%NaCl at O. 3:31:39 Patient allergic to No known allergies 3::47 Right groin area was prepped with chlora-prep and draped in sterile fashion 3:31:52 3:41:36 ECG and BP/O2 sat monitors applied to patient. 3:41:37 Vital chart was started 3:41:39 Baseline sample Acquired. 3:41:43 Full Disclosure recording started 3:41:44 3:48:08 Physician arrived 3:48:10 --------ALL STOP TIME OUT------ 3:48:10 Final Timeout: patient, procedure, and site verified with staff and physician. All members of the team are in agreement. 3:49:23 Procedure started. 3:49:27 Local anesthetic to right femoral artery with Lidocaine 1% by Matt Potts MD.INITIAL ACCESS ONLY 3:51:49 Versed 0.5 mg I.V. was administered by Ladonna Singh RN; for sedation; 3:52:01 Fentanyl 25 mcg I.V. was administered by Ladonna Singh RN; for sedation; 3:52:14 Oxygen 3 l/min etCO2 Nasal cannula was administered by Ladonna Singh RN; Per protocol; 3:53:35 BENTSON 145cm wire (Z09955) opened to sterile field. 3:54:26 Lidocaine 1% 20ml vial added to field was administered by Matt Potts MD; Per protocol; 3:54:58 Heparin Flush Bag (1000units/500ml NS) 3 bags added to field was administered by Matt Potts MD; Per protocol; 3:57:52 Arterial access obtained using ultrasound guidance. 4:01:43 Glucagon 1 mg I.V. was administered by Ladonna Singh RN; Per protocol; 4:07:43 COPILOT Valve Control (7907396) opened to sterile field. 4:07:55 TRANSEND STEERABLE wire ([id number]) opened to sterile field. 4:08:17 RENEGADE STAIGHT 150CM microcatheter ([id number]) opened to sterile field. 4:21:31 COIL HILAL 1.0-0 (B46591) opened to sterile field. 4:26:52 COIL Positioning Wire ([id number]) opened to sterile field. 4:28:06 Fentanyl 25 mcg I.V. was administered by Ladonna Singh RN; for sedation; 4:28:12 Effectiveness of Fentanyl delivered @ 3:52:01 is: Mostly sleeping 4:28:17 Effectiveness of Versed delivered @ 3:51:49 is: Mostly sleeping 4:38:32 COIL HILAL 2.0-2 (V05188) opened to sterile field. 4:44:12 Sheath removed intact; hemostasis achieved with Exoseal to the Femoral artery. 4:44:12 A sheath was inserted into the Femoral artery 4:44:24 EXOSEAL 5Fr (EX500) opened to sterile field. 4:45:53 Procedure ended.(Physican Out) 4:46:06 Fluoroscopy time 09.70 minutes. 4:46:11 Fluoroscopy dose: 985 mGy 4:46:11 Flurop Dose total: 985 4:46:20 Contrast amount:Isovue 300 70ml. 4:46:23 Procedure and supply charges have been captured, reviewed, submitted and are correct. 4:50:27 Vital chart was stopped Device Usage Item Name Manufacture Quantity Catalog Hospital Part Current Minima l Lot# / Number Charge Number Stock Stock Serial# Code Merit Impress Merit 1 [id number] 842938 269602 5 5Fr SIM 1 Medical Catheter ([id number]) TUBING Merit 1 [id number] 092729 865945 407794 5 Contrast Medical Injection High Pressure (QVN300H) SHEATH 5FR Terumo 1 [id number] 245773 227975 629267 40 [place] (AGQ437) Micropuncture VSI VASCULAR 1 7266V 799830 130127 5 VSI 4FR kit SOLUTIONS Tegaderm 4 x 3M 1 1626W 660622 489109 854710 5 4 (1626W) Sterile Cardinal 1 [id number] 934790 281171 5 Angiographic Health Pack Bag Decanter Microtek 1 2001S 034110 43721 984484 5 (2001S) Medical Inc. ACIST Acist 1 87213 132574 627037 230489 5 Manifold Medical (94718) Systems Inc ACIST Hand Acist 1 61350 402252 841083 323154 5 Control Medical (08010) Systems Inc ACIST Syringe Acist 1 82897 412118 484070 478189 20 (53240) Medical Systems Inc BENTSON 145cm Cook Medical 1 Z62556 354005 598347 5 wire (Z39188) COPILOT Valve [place] 1 5709188 290910 249511 898760 5 Control Vascular (3447904) TRANSEND [place] 1 [id number] 915570 412234 5 STEERABLE Scientific wire ([id number]) RENEGADE [place] 1 [id number] 875156 583735 5 STAIGHT 150CM Scientific microcatheter ([id number]) COIL HILAL Cook Medical 1 Q88359 569867 783248 5 8514823 1.0-0 (S56536) COIL [place] 1 [id number] 511228 233255 554965 5 Positioning Scientific Wire ([id number]) COIL HILAL Cook Medical 1 V07054 149267 933587 5 4789001 2.0-2 (A77901) EXOSEAL 5Fr Cardinal 1 EX500 415078 767974 119204 10 [id number] (EX500) Health Signature Audit [place] Stage Time Signature Unsigned Intra-Procedure 10/11/2017 Liat Monreal 4:50:24 AM RT(R) [id number] [place] [address]
--- NOTE | ~2017-10-10 | HP ---
PATIENT: LIAM KRAUS MEDICAL RECORD: [id number] ACCOUNT: [id number] LOCATION:[facility] D.2314 : 43 ADMISSION DATE: 10/10/17 HISTORY AND PHYSICAL EXAMINATION DATE OF ADMISSION: 10/10/2017 CHIEF COMPLAINT: Dizziness as well as lower GI bleed. HISTORY OF PRESENT ILLNESS: The patient is a 71-year-old gentleman, who states he was in his normal state of health until approximately 8 p.m. He had felt the need to have a bowel movement, presented after having melanotic stools, also very dizzy. In the Emergency Room, the patient was hypotensive. He did have guaiac-positive stool. It was felt the patient should be admitted. PAST MEDICAL HISTORY: Significant that he had PTCA of coronary artery in April of this year and is on Plavix as well as aspirin. He has had a history of having chronic dizziness in the past. He has had gastroesophageal reflux. He has had hyperlipidemia, history of having hypertension, history of prostatism. He has a history of sleep apnea. No history of GI bleed. He had had a colonoscopy by Dr. Barba in 2014, reportedly unremarkable. Also an EGD last year, unremarkable. FAMILY HISTORY: Father of lung cancer. Mother had diabetes mellitus, lived into her 80s. SOCIAL HISTORY: The patient is retired. He has a post-graduate degree. 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 He is . HABITS: Moderate alcohol ingestion. He denies any cigarette use. ALLERGIES: No known drug allergies. MEDICATIONS: Include aspirin 81 mg daily, Plavix 75 mg daily, Protonix 40 mg daily, Crestor 10 mg daily, vitamin D3 at 2000 international units daily. REVIEW OF SYSTEMS: CONSTITUTIONAL: He denies any headaches. He has had near syncope. He denies any change in visual or auditory acuity. PULMONARY: He denies any shortness of breath, cough or congestion, history of TB, asthma or bronchitis. CARDIOVASCULAR: He denies any chest pain, palpitation, PND, or orthopnea. GASTROINTESTINAL: No chronic nausea, vomiting, melena, or hematochezia. GENITOURINARY: No urgency, frequency, or dysuria. PHYSICAL EXAMINATION: VITAL SIGNS: In the Emergency Room, his respirations 18, his pulse rate was 73, blood pressure 95/57. HEENT: Head: Normocephalic. No lesions. Ears: TMs clear. Eyes: Pupils equal, round, and reactive to light. Extraocular movements are intact. His nasal cavity, oral cavity, and oropharynx clear. NECK: Supple. There is no adenopathy. HEART: Had a regular rate without murmurs, gallops, or rubs. LUNGS: Clear. ABDOMEN: Soft. Bowel sounds are positive. HISTORY AND PHYSICAL [id number] LIAM KRAUS RECTAL: He did have guaiac-positive stool. LABORATORY DATA: The patient's white count was 7.7, hemoglobin 11.3, hematocrit 32.9, his platelets were 192. His sodium of 141, potassium 5.1, chloride 109, CO2 is 22.8, BUN is 23, creatinine 1.6, glucose 174, calcium 7.7. PT was 13.5. INR was 0.9. The patient had a bleeding scan. Bleeding scan did reveal findings consistent with active gastrointestinal hemorrhage in the mid upper right colon near the hepatic flexure. ASSESSMENT: Lower gastrointestinal bleed. PLAN: The patient is admitted. Serial H&H will be obtained. GI consultation will be obtained as well. TRANSINT:[id number] Voice Confirmation ID: [id number] DOCUMENT ID: [id number] VALENTINO WARE MD at 0714 CC: [id number] DICTATION DATE: 10/11/17714 ASSISTANT FIELD HOCKEY COACH: 10/11/17 0802 [place] [address]
--- NOTE | ~2017-10-10 | DS ---
PATIENT:LIAM KRAUS :43 MEDICAL RECORD: [id number] DISCHARGE SUMMARY ADMISSION DATE: 10/10/17 DISCHARGE DATE: 10/13/17 DATE OF ADMISSION: 10/10/2017 DATE OF DISCHARGE: 10/13/2017 CONDITION ON DISCHARGE: Improved. ADMITTING DIAGNOSES: Dizziness as well as a lower gastrointestinal bleed. DISCHARGE DIAGNOSES: Lower gastrointestinal bleed, hypotension. HOSPITAL COURSE: A 71-year-old -[place] male who had reported having dizziness over the lower GI bleed. The patient states that he was in normal state of good health until 8:00 p.m. on the day of his admission. He felt the need to have a bowel movement. He noted melanotic stools, became very dizzy, presented to the Emergency Room where it was felt the patient should be admitted. PHYSICAL EXAMINATION: VITAL SIGNS: In the Emergency Room, his respirations 18, his pulse 73. His blood pressure 95/57. HEENT: Unremarkable. GENERAL: He was alert. He is oriented times 3. RECTAL: Exam showed stool guaiac to be positive. LABORATORY DATA: White count 7.7, hemoglobin 11.3, hematocrit was 32.9, platelets 192. Sodium 141, potassium 5.1, chloride is 109, CO2 is 22, BUN is 23, creatinine 1.6, glucose 174. PT was 13.5 with an international ratio 0.9. Bleeding scan reveal acute hemorrhage in the upper right colon near the hepatic flexure. HOSPITAL COURSE: The patient was admitted. Serial H&Hs were checked q. 6 hours. He was seen in consultation by Dr. Leslie, primer and powder canning leader, Dr. Potts, interventional radiologist, was consulted as well. The patient was given 3 units of packed red blood cells. He was placed on a Protonix drip. The patient did undergo a mesenteric arteriogram with embolization for GI bleed. No further bleeding was noted. On the day of discharge, white count 6.4, hemoglobin 10.4, hematocrit 30.6, his platelets were 153. PT and INR were normal. He had a sodium 140, potassium 3.5, chloride 106, CO2 was 28.8, BUN 13, creatinine 1.1. The patient was afebrile, pulse was 81, respiration 19, blood pressure 141/95, DISCHARGE SUMMARY REPORT [id number] LIAM KRAUS O2 sat was 100% on room air. The patient was felt to be stable and was discharged. He was discharged on fish oil 1 every day, garlic one a day, vitamin D3 2000 international units once a day, KCl 10 mEq every other day, Protonix 40 mg p.o. b.i.d., stool softener Dulcolax 100 mg p.r.n. constipation. His aspirin, Plavix, and Reglan were stopped. He was discharged on a diabetic diet, 2200 calories. He is to follow up with me in 1 week. TRANSINT:[id number] Voice Confirmation ID: [id number] DOCUMENT ID: [id number] VALENTINO WARE MD CC: [id number] DICTATION DATE: 11/13/17 1208 CHIPPER FEEDER: 11/13/17 1254 DIS IN 10/13/17 [address] [place] [address]
[2017-10-10] MEDS ORDERED: PROTONIX40 MG PO (21:03)
[2017-10-10] MEDS ORDERED: KLOR-CON 1010 MEQ PO (21:03)
[2017-10-10] MEDS ORDERED: REGLAN10 MG PO (21:06)
[2017-10-10] MEDS ORDERED: STOOL SOFTENER100 M1 PO (21:06)
[2017-10-10 21:30] VITALS: BP 108/65
[2017-10-10 22:00] VITALS: BP 87/87
[2017-10-10 22:08] LABS: BASOPHILS 0.5 % (0-2); EOSINOPHILS 6.9 % (0-7); HEMATOCRIT 29.7 % (42.0-54.0); HEMOGLOBIN 10.1 g/dL (13.5-17.5); LYMPHOCYTES 23.1 % (15-50); MCH 30.8 pg (26.0-34.0); MCV 90.5 fL (80.0-100.0); MEAN PLATELET VOLUME 10.8 fL (7.4-10.4); MONOCYTES 15.1 % (2-11); NEUTROPHILS 54.4 % (40-80); PLATELET COUNT 198 10x3/uL (130-400); RBC 3.28 10x6/uL (4.20-6.10); RDW 12.4 % (11.5-14.5)
[2017-10-10 22:15] VITALS: BP 91/64
[2017-10-10 22:26] LABS: ALBUMIN 2.9 g/dL (3.4-5.0); ANION GAP 8.8 mmol/L (8-16); APTT 38.9 SECONDS (22.8-39.4); BILIRUBIN - TOTAL 0.19 mg/dL (0.2-1.3); CALCIUM 8.3 mg/dL (8.5-10.1); CARBON DIOXIDE 26.3 mmol/L (21.0-32.0); CREATININE - SERUM 1.5 mg/dL (0.6-1.3); INR 1.09 (0.85-1.17); POTASSIUM - SERUM 4.1 mmol/L (3.5-5.1); PROTEIN - SERUM 6.4 g/dL (6.4-8.2); PROTIME 13.5 SECONDS (11.6-15.0)
[2017-10-10 22:51] VITALS: BP 69/41
[2017-10-10 23:42] VITALS: BP 94/61
[2017-10-11] VITALS (23 sets, daily range): BP systolic 92–153; BP diastolic 52–104; Ht 177.8 cm; Wt 79.7 kg
[2017-10-11 03:06] LABS: BASOPHILS 0.3 % (0-2); EOSINOPHILS 1.4 % (0-7); HEMATOCRIT 32.9 % (42.0-54.0); HEMOGLOBIN 11.3 g/dL (13.5-17.5); IMMATURE GRANULOCYTES 0.5 % (0-5); LYMPHOCYTES 13.4 % (15-50); MCH 30.7 pg (26.0-34.0); MCHC 34.3 g/dL (31.0-37.0); MCV 89.4 fL (80.0-100.0); MEAN PLATELET VOLUME 9.8 fL (7.4-10.4); MONOCYTES 6.4 % (2-11); PLATELET COUNT 192 10x3/uL (130-400); RBC 3.68 10x6/uL (4.20-6.10); RDW 13.3 % (11.5-14.5); WBC 7.7 10x3/uL (4.8-10.8)
[2017-10-11 03:32] LABS: ALBUMIN 2.7 g/dL (3.4-5.0); ALKALINE PHOSPHATASE 40 U/L (46-116); ALT (SGPT) 14 U/L (10-68); BILIRUBIN - TOTAL 0.35 mg/dL (0.2-1.3); CALCIUM 7.7 mg/dL (8.5-10.1); CARBON DIOXIDE 22.8 mmol/L (21.0-32.0); CHLORIDE - SERUM 109 mmol/L (98-107); CKMB 0.7 U/L (0.0-3.6); CREATINE KINASE 119 UL (21-232); CREATININE - SERUM 1.6 mg/dL (0.6-1.3); PROTEIN - SERUM 5.5 g/dL (6.4-8.2); SODIUM 141 mmol/L (136-145); TROPONIN-I < 0.017 ng/mL (0.000-0.060); UREA NITROGEN 23 mg/dL (7-18); eGFR NON AFRICAN AMERICAN 45 mL/min (90-120)
[2017-10-11 03:34] LABS: CALC OSMOLALITY 288 mosm/kg (275-300); GLUCOSE 174 mg/dL (74-106); POTASSIUM - SERUM 5.1 mmol/L (3.5-5.1)
[2017-10-11 10:16] LABS: HEMATOCRIT 22.7 % (42.0-54.0); HEMOGLOBIN 7.7 g/dL (13.5-17.5)
[2017-10-11 18:37] LABS: HEMATOCRIT 32.6 % (42.0-54.0); HEMOGLOBIN 10.7 g/dL (13.5-17.5)
[2017-10-11 21:19] LABS: HEMATOCRIT 30.2 % (42.0-54.0); HEMOGLOBIN 10.3 g/dL (13.5-17.5)
[2017-10-12] VITALS (13 sets, daily range): BP systolic 125–162; BP diastolic 75–99
[2017-10-12 04:25] LABS: BASOPHILS 0.1 % (0-2); EOSINOPHILS 3.6 % (0-7); HEMATOCRIT 30.4 % (42.0-54.0); HEMOGLOBIN 10.2 g/dL (13.5-17.5); IMMATURE GRANULOCYTES 0.3 % (0-5); LYMPHOCYTES 12.4 % (15-50); MCH 27.3 pg (26.0-34.0); MCHC 33.6 g/dL (31.0-37.0); MEAN PLATELET VOLUME 9.7 fL (7.4-10.4); MONOCYTES 7.6 % (2-11); RBC 3.74 10x6/uL (4.20-6.10); RDW 18.6 % (11.5-14.5); WBC 7.3 10x3/uL (4.8-10.8)
[2017-10-12 04:33] LABS: ANION GAP 11.9 mmol/L (8-16); CALCIUM 7.9 mg/dL (8.5-10.1); CARBON DIOXIDE 25.9 mmol/L (21.0-32.0); CREATININE - SERUM 1.2 mg/dL (0.6-1.3); MCV 81.3 fL (80.0-100.0); PLATELET COUNT 141 10x3/uL (130-400)
[2017-10-12 04:39] LABS: POTASSIUM - SERUM 3.8 mmol/L (3.5-5.1)
[2017-10-12 15:03] LABS: HEMATOCRIT 36.4 % (42.0-54.0); HEMOGLOBIN 12.1 g/dL (13.5-17.5)
[2017-10-13 00:16] VITALS: BP 140/82
[2017-10-13 04:16] LABS: BASOPHILS 0.2 % (0-2); EOSINOPHILS 5.2 % (0-7); HEMATOCRIT 30.6 % (42.0-54.0); HEMOGLOBIN 10.4 g/dL (13.5-17.5); IMMATURE GRANULOCYTES 0.5 % (0-5); LYMPHOCYTES 13.1 % (15-50); MCH 27.7 pg (26.0-34.0); MCV 81.6 fL (80.0-100.0); MEAN PLATELET VOLUME 9.9 fL (7.4-10.4); PLATELET COUNT 154 10x3/uL (130-400); RBC 3.75 10x6/uL (4.20-6.10); RDW 18.2 % (11.5-14.5); WBC 6.4 10x3/uL (4.8-10.8)
[2017-10-13 04:23] LABS: ANION GAP 8.7 mmol/L (8-16); CALCIUM 8.4 mg/dL (8.5-10.1); CARBON DIOXIDE 28.8 mmol/L (21.0-32.0); CREATININE - SERUM 1.1 mg/dL (0.6-1.3); POTASSIUM - SERUM 3.5 mmol/L (3.5-5.1)
[2017-10-13 05:37] VITALS: BP 141/95
== END 2017-10-13 15:30 | disposition home or self-care (01) | DRG 982 ==
LOC: D.ER 20:58 → D.M2 23:32 → D.ICU 23:32 → D.EDHOLD 23:32 → D.ICU 23:50 → D.M2 10-12 14:04
PROVIDERS: Family Medicine; Internal Medicine Gastroenterology; Radiology Diagnostic Radiology; Specialist
PROC: 04V53DZ Restriction of Superior Mesenteric Artery with Intraluminal Device, Percutaneous Approach (ICD-10-PCS; principal; 2017-10-11 03:49)
DX: K92.2 Gastrointestinal hemorrhage, unspecified (principal); D62 Acute posthemorrhagic anemia; I95.9 Hypotension, unspecified; I10 Essential (primary) hypertension; K21.9 Gastro-esophageal reflux disease without esophagitis; E78.5 Hyperlipidemia, unspecified; R55 Syncope and collapse; R42 Dizziness and giddiness; Z95.5 Presence of coronary angioplasty implant and graft

== ENCOUNTER 2018-03-15 08:10 | Emergency (ER) | payer MEDICARE, BC ==
[~2018-03-15] VITALS: Ht 177.8 cm; Wt 83.6 kg
[~2018-03-15 08:10] MED LIST changes: +PROTONIX40 MG PO; +REGLAN10 MG PO; +STOOL SOFTENER100 M1 PO
[2018-03-15 08:21] VITALS: Ht 177.8 cm; Wt 83.6 kg
[2018-03-15 08:58] LABS: HEMATOCRIT 36.6 % (42.0-54.0); HEMOGLOBIN 13.1 g/dL (13.5-17.5); MCHC 35.8 g/dL (31.0-37.0); MCV 89.5 fL (80.0-100.0); MEAN PLATELET VOLUME 10.5 fL (7.4-10.4); PLATELET COUNT 151 10x3/uL (130-400); RBC 4.09 10x6/uL (4.20-6.10); WBC 2.8 10x3/uL (4.8-10.8)
[2018-03-15 09:04] LABS: APTT 31.2 SECONDS (22.8-39.4); INR 1.01 (0.85-1.17); PROTIME 12.8 SECONDS (11.6-15.0)
[2018-03-15 09:08] LABS: ALBUMIN 3.2 g/dL (3.4-5.0); ALKALINE PHOSPHATASE 66 U/L (46-116); ALT (SGPT) 20 U/L (10-68); BILIRUBIN - TOTAL 0.34 mg/dL (0.2-1.3); CALC OSMOLALITY 279 mosm/kg (275-300); CALCIUM 8.7 mg/dL (8.5-10.1); CARBON DIOXIDE 27.1 mmol/L (21.0-32.0); CHLORIDE - SERUM 102 mmol/L (98-107); CREATININE - SERUM 1.3 mg/dL (0.6-1.3); GLUCOSE 98 mg/dL (74-106); PROTEIN - SERUM 7.5 g/dL (6.4-8.2); SODIUM 141 mmol/L (136-145); UREA NITROGEN 10 mg/dL (7-18); eGFR NON AFRICAN AMERICAN 57 mL/min (90-120)
[2018-03-15 09:20] LABS: CREATINE KINASE 81 UL (21-232); MAGNESIUM - SERUM 1.5 mg/dL (1.8-2.4); TROPONIN-I < 0.017 ng/mL (0.000-0.060)
[2018-03-15 10:41] LABS: LYMPHOCYTES 50 % (15-50); MONOCYTES 5 % (2-11); NEUTROPHILS 40 % (40-80); PLATELET ESTIMATE NORMAL
[2018-03-15 10:42] LABS: EOSINOPHILS 5 % (0-7)
[2018-03-15 12:19] VITALS: BP 172/96
== END 2018-03-15 12:20 | disposition home or self-care (01) ==
LOC: D.ER 08:10
PROVIDERS: Family Medicine
DX: R55 Syncope and collapse (principal); E87.6 Hypokalemia; S01.81XA Laceration without foreign body of other part of head, initial encounter; W18.30XA Fall on same level, unspecified, initial encounter; Y93.89 Activity, other specified; Y92.019 Unspecified place in single-family (private) house as the place of occurrence of the external cause

== ENCOUNTER → 2018-06-19 13:09 | Outpatient (CLI) | payer MEDICARE, BC ==
[2018-03-15 08:21] VITALS: BMI 26.4
== END | disposition home or self-care (01) ==
LOC: D.MRI 13:09
PROVIDERS: ATTEND Orthopaedic Surgery
DX: M54.16 Radiculopathy, lumbar region (principal)

== ENCOUNTER 2019-02-22 21:13 | Emergency (ER) | payer MEDICARE, BC ==
[2018-03-15 08:21] VITALS: BMI 26.4
== END 2019-02-22 21:26 | disposition left against medical advice (07) ==
LOC: D.ER 21:13
DX: R55 Syncope and collapse (principal)

== ENCOUNTER 2019-05-14 12:21 | Emergency (ER) | payer MEDICARE, BC ==
[~2019-05-14] VITALS: Ht 177.8 cm; Wt 78.2 kg
[2019-05-14 12:26] VITALS: Ht 177.8 cm; Wt 78.2 kg
[2019-05-14 13:23] LABS: CALC OSMOLALITY 273 mosm/kg (275-300); CALCIUM 8.7 mg/dL (8.5-10.1); CARBON DIOXIDE 27.2 mmol/L (21.0-32.0); CHLORIDE - SERUM 101 mmol/L (98-107); CREATININE - SERUM 1.4 mg/dL (0.6-1.3); GLUCOSE 92 mg/dL (74-106); SODIUM 137 mmol/L (136-145); UREA NITROGEN 12 mg/dL (7-18); eGFR NON AFRICAN AMERICAN 53 mL/min (90-120)
[2019-05-14 13:36] LABS: HEMATOCRIT 40.9 % (42.0-54.0); HEMOGLOBIN 14.1 g/dL (13.5-17.5); LYMPHOCYTES 27.2 % (15-50); MCH 31.3 pg (26.0-34.0); MCHC 34.5 g/dL (31.0-37.0); MCV 90.7 fL (80.0-100.0); MEAN PLATELET VOLUME 9.9 fL (7.4-10.4); NEUTROPHILS 63.4 % (40-80); RBC 4.51 10x6/uL (4.20-6.10); WBC 4.2 10x3/uL (4.8-10.8)
[2019-05-14 13:38] LABS: ALBUMIN 3.4 g/dL (3.4-5.0); ALKALINE PHOSPHATASE 84 U/L (30-120); ALT (SGPT) 14 U/L (10-68); BILIRUBIN - TOTAL 0.64 mg/dL (0.2-1.3); CKMB 0.4 U/L (0.0-3.6); CREATINE KINASE 75 UL (21-232); MAGNESIUM - SERUM 2.2 mg/dL (1.8-2.4); TROPONIN-I 0.018 ng/mL (0.000-0.060)
[2019-05-14 13:43] LABS: PLATELET COUNT 199 10x3/uL (130-400)
[2019-05-14 14:58] VITALS: BP 123/79
== END 2019-05-14 14:58 | disposition home or self-care (01) ==
LOC: D.ER 12:21
PROVIDERS: Family Medicine
DX: R55 Syncope and collapse (principal); S01.81XA Laceration without foreign body of other part of head, initial encounter; X58.XXXA Exposure to other specified factors, initial encounter; Z95.5 Presence of coronary angioplasty implant and graft

== ENCOUNTER 2019-05-29 15:41 | Inpatient (IN) | payer MEDICARE, BC ==
[~2019-05-29] VITALS: Ht 152.4 cm; Wt 76.1 kg
--- NOTE | 2019-05-29 16:09 | NUR ---
DISCHARGED STABLE WITH INSTR AND RXS: VERB UNDER
[2019-05-29 16:30] VITALS: BP 144/88
[2019-05-29 16:37] LABS: HEMATOCRIT 41.3 % (42.0-54.0); MCH 31.5 pg (26.0-34.0); MCHC 33.9 g/dL (31.0-37.0); MCV 92.8 fL (80.0-100.0); MEAN PLATELET VOLUME 9.4 fL (7.4-10.4); PLATELET COUNT 233 10x3/uL (130-400); RBC 4.45 10x6/uL (4.20-6.10); RDW 13.3 % (11.5-14.5); WBC 2.5 10x3/uL (4.8-10.8)
[2019-05-29 16:46] LABS: CALC OSMOLALITY 271 mosm/kg (275-300); CALCIUM 8.9 mg/dL (8.5-10.1); CARBON DIOXIDE 21.1 mmol/L (21.0-32.0); CHLORIDE - SERUM 101 mmol/L (98-107); CREATININE - SERUM 1.3 mg/dL (0.6-1.3); GLUCOSE 94 mg/dL (74-106); POTASSIUM - SERUM 3.4 mmol/L (3.5-5.1); SODIUM 136 mmol/L (136-145); UREA NITROGEN 12 mg/dL (7-18); eGFR NON AFRICAN AMERICAN 57 mL/min (90-120)
[2019-05-29 17:01] LABS: ALBUMIN 3.4 g/dL (3.4-5.0); ALKALINE PHOSPHATASE 85 U/L (30-120); ALT (SGPT) 18 U/L (10-68); BILIRUBIN - TOTAL 0.41 mg/dL (0.2-1.3); CKMB 0.1 U/L (0.0-3.6); CREATINE KINASE 69 UL (21-232); PROTEIN - SERUM 7.9 g/dL (6.4-8.2); TROPONIN-I 0.026 ng/mL (0.000-0.060)
--- NOTE | 2019-05-29 17:08 | NUR ---
URINE SPECIMEN COLLECTED, LABELED AT BS AND SENT TO LAB
[2019-05-29 18:02] LABS: EOSINOPHILS 4 % (0-7); LYMPHOCYTES 51 % (15-50); MONOCYTES 4 % (2-11); NEUTROPHILS 41 % (40-80); PLATELET ESTIMATE NORMAL
[2019-05-29 18:02] LABS: BILIRUBIN NEGATIVE (NEGATIVE); GLUCOSE NEGATIVE (NEGATIVE); KETONE NEGATIVE (NEGATIVE); NITRITE NEGATIVE (NEGATIVE); UROBILINOGEN NORMAL (NORMAL)
[2019-05-29 18:10] VITALS: BP 178/105
--- NOTE | 2019-05-29 18:10 | NUR ---
NOTIFIED DR BURGOS OF ELEVATED BP, NO NEW ORDERS
--- NOTE | 2019-05-29 19:11 | NUR ---
REPORT CALLED TO ANGELO ARCEO
[2019-05-29 19:12] VITALS: BP 167/97
[2019-05-29 20:00] VITALS: BP 191/101
--- NOTE | 2019-05-29 20:49 | NUR ---
PATIENT TO ROOM 2101 @ 2000 VIA WHEELCHAIR. TRANSFERED TO BED INDEPENDENTLY. PATIENT IS AAOX4, NO S/S OF DISTRESS OBSERVED, RR EVEN AND UNLABORED ON ROOM AIR. VSS. PIV TO LT HAND, PATENT, INFUSING NS @ 125ML/HR. PATIENT DENIES NEEDS AT THIS TIME. CL IN REACH, BED LOCKED AND LOWERED. BED ALARM ON. WILL CTM.
[2019-05-30] VITALS (11 sets, daily range): BP systolic 74–195; BP diastolic 52–112
[2019-05-30 05:26] LABS: BASOPHILS 0.2 % (0-2); EOSINOPHILS 2.2 % (0-7); HEMATOCRIT 37.6 % (42.0-54.0); HEMOGLOBIN 12.7 g/dL (13.5-17.5); IMMATURE GRANULOCYTES 0.2 % (0-5); LYMPHOCYTES 19.9 % (15-50); MCH 31.4 pg (26.0-34.0); MCHC 33.8 g/dL (31.0-37.0); MCV 93.1 fL (80.0-100.0); MEAN PLATELET VOLUME 9.8 fL (7.4-10.4); MONOCYTES 9.9 % (2-11); NEUTROPHILS 67.6 % (40-80); PLATELET COUNT 268 10x3/uL (130-400); RBC 4.04 10x6/uL (4.20-6.10); RDW 13.2 % (11.5-14.5)
[2019-05-30 05:47] LABS: WBC 5.4 10x3/uL (4.8-10.8)
[2019-05-30 05:50] LABS: ALBUMIN 3.3 g/dL (3.4-5.0); ALKALINE PHOSPHATASE 82 U/L (30-120); BILIRUBIN - TOTAL 0.59 mg/dL (0.2-1.3); CALCIUM 8.2 mg/dL (8.5-10.1); CARBON DIOXIDE 24.6 mmol/L (21.0-32.0); CHLORIDE - SERUM 103 mmol/L (98-107); CKMB 0.3 U/L (0.0-3.6); CREATINE KINASE 75 UL (21-232); CREATININE - SERUM 1.1 mg/dL (0.6-1.3); GLUCOSE 83 mg/dL (74-106); MAGNESIUM - SERUM 1.6 mg/dL (1.8-2.4); PHOSPHOROUS 2.5 mg/dL (2.5-4.9); POTASSIUM - SERUM 3.4 mmol/L (3.5-5.1); PRO BNP 97 pg/mL (0-125); PROTEIN - SERUM 7.5 g/dL (6.4-8.2); SODIUM 137 mmol/L (136-145); THYROID STIMULATING HORMONE 1.24 uIU/mL (0.36-3.74); eGFR NON AFRICAN AMERICAN 69 mL/min (90-120)
[2019-05-30 05:56] LABS: ALT (SGPT) 12 U/L (10-68); CALC OSMOLALITY 270 mosm/kg (275-300); UREA NITROGEN 8 mg/dL (7-18)
[2019-05-30 11:34] LABS: % SATURATION 42 % (15-55); IRON 84 ug/dl (35-150); TOTAL IRON BIND CAPACITY 199 ug/dl (260-445); UNSAT IRON BIND CAPACITY 115 ug/dl (150-375)
--- NOTE | 2019-05-30 11:49 | NUR ---
PERFORMED ORTHOSTATIC BP ON PT @1115. PT LYING - BP 173/107 HR 81 PT SITTING - BP - 133/98 HR 110 PT STANDING 108/67 HR 111, PT C/O GETTING DIZZY WHILE STANDING, COMPLETED BP AND ASSISTED PT BACK TO BED, NO OTHER NEEDS AT THIS TIME, CONTINUE WITH PLAN OF CARE
[2019-05-30 12:05] LABS: FERRITIN 321 ng/mL (3-244)
--- NOTE | 2019-05-30 15:35 | NUR ---
PT DAUGHTER CALLED IN REGARDS TO PT CONDITION, STATED PT HAS HAD THIS PROBLEM ONGOING FOR A LONG TIME NOW AND SOMETIMES IT CLEARS UP AND PT IS OK AND SOMETIMES HE GOES TO ER AND GIVEN FLUIDS THEN SENT HOME. DAUGHTER RIA STATED PT SX INCLUDE NUMBNESSIN ARMS, HAND AND LEGS, TREMORS IN HANDS AND LEGS, DIZZINESS, URINARY RETENTION AT TIMES, STATES SISTER WAS RECENTLY DX WITH MS AND WONDERING IF PT HAS AN AUTOIMMUNE DISORDER. WOULD LIKE FOR TO GIVE HER A CALL IF POSSIBLE TO DISCUSS PT'S SYMPTOMS AND POSSIBLE CAREPLAN. DAUGHTER NAME IS RIA AND PHONE NUMBER IS [phone]. THANK YOU
--- NOTE | 2019-05-30 16:55 | NUR ---
PERFORMED ORTHOSTATIC BP ON PT, LYING - BP 182/107 HR-78, SITTING - BP 142/88 HR- 100, STANDING - 114/83 HR 85. CONTINUE WITH PLAN OF CARE
--- NOTE | 2019-05-30 19:15 | NUR ---
REPORT RECEIVED, WILL CONTINUE POC. PATIENT IS RESTING WITH EYES CLOSED. NO S/S OF DISTRESS OBSERVED, RR EVEN AND UNLABORED ON ROOM AIR. PIV TO LT HAND, PATENT, INFUSING NS @ 125ML/HR. CL IN REACH, BED LOCKED AND LOWERED. WILL CTM.
--- NOTE | 2019-05-30 20:00 | NUR ---
ORTHOSTATIC BP - LAYING DOWN 176/96 - SITTING 122/66 - STANDING 107/69
[2019-05-31] VITALS: BP 188/105
[2019-05-31 03:28] VITALS: Ht 152.4 cm; Wt 76.1 kg
[2019-05-31 04:00] VITALS: BP 181/100
[2019-05-31 05:47] LABS: ANION GAP 12.4 mmol/L (8-16); CALCIUM 8.3 mg/dL (8.5-10.1); CREATININE - SERUM 1.1 mg/dL (0.6-1.3); MAGNESIUM - SERUM 1.8 mg/dL (1.8-2.4); PHOSPHOROUS 2.4 mg/dL (2.5-4.9); POTASSIUM - SERUM 3.4 mmol/L (3.5-5.1)
[2019-05-31 05:57] LABS: BASOPHILS 0.3 % (0-2); EOSINOPHILS 5.3 % (0-7); HEMATOCRIT 37.4 % (42.0-54.0); HEMOGLOBIN 12.9 g/dL (13.5-17.5); IMMATURE GRANULOCYTES 0.3 % (0-5); LYMPHOCYTES 27.7 % (15-50); MCH 31.8 pg (26.0-34.0); MCHC 34.5 g/dL (31.0-37.0); MCV 92.1 fL (80.0-100.0); NEUTROPHILS 53.4 % (40-80); PLATELET COUNT 229 10x3/uL (130-400); RBC 4.06 10x6/uL (4.20-6.10)
--- NOTE | 2019-05-31 07:43 | NUR ---
PT SITTING UP ON SIDE OF BED. AXO. STATES HE WANTS A SHOWER WHEN BRINGS CLOTHES UP. DENIES FURTHER NEEDS OR PAIN AT THIS TIME. CALL LIGHT WITHIN REACH. RR EVEN AND UNLABORED ON RA. BED IN LOWEST POSITION. WILL CONTINUE TO MONITOR.
--- NOTE | 2019-05-31 07:51 | NUR ---
ORTHOSTATIC VITALS: LAYING- 175/101 SITTING-143/104 STANDING-94/64
[2019-05-31 09:08] VITALS: BP 175/101
[2019-05-31 12:57] VITALS: BP 174/100
--- NOTE | 2019-05-31 13:33 | NUR ---
BP 198/121 WHILE LAYING, SENT A TEXT TO JEROMY CRABTREE AND MADE HER AWARE, NO FURTHER ORDERS AT THIS TIME.
--- NOTE | 2019-05-31 17:14 | NUR ---
I have reviewed this patient and I concur with the Shift Assessment completed by the Licensed Practical Nurse today this shift.
--- NOTE | 2019-05-31 19:30 | NUR ---
PT LYING IN BED AWAKE ALERT AND ORIENTED x4. NO SIGNS OF DISTRESS NOTED. RESPIRATIONS EVEN AND UNLABORED. NO COMPLAINTS AT THIS TIME. PT ENCOURAGED TO CALL FOR HELP WHEN GETTING IN AND OUT OF BED. CALL LIGHT WITH IN REACH. WILL CONTINUE TO MONITOR
[2019-05-31 20:00] VITALS: BP 101/73; BP 116/81; BP 156/93
--- NOTE | 2019-05-31 20:00 | NUR ---
ORTHO VITAL SIGNS. LYING 97.6, 156/93, 79, 18, 98%RA SITTING 97.6, 116/81, 105, 99%RA STANDING 97.6 101/73 107 98%RA
[2019-06-01] VITALS: BP 146/89
[2019-06-01 03:53] LABS: BASOPHILS 0.2 % (0-2); EOSINOPHILS 2.8 % (0-7); HEMATOCRIT 38.3 % (42.0-54.0); IMMATURE GRANULOCYTES 0.3 % (0-5); LYMPHOCYTES 20.6 % (15-50); MCH 31.6 pg (26.0-34.0); MCHC 33.9 g/dL (31.0-37.0); MCV 93.2 fL (80.0-100.0); MEAN PLATELET VOLUME 9.7 fL (7.4-10.4); MONOCYTES 8.4 % (2-11); NEUTROPHILS 67.7 % (40-80); PLATELET COUNT 229 10x3/uL (130-400); RBC 4.11 10x6/uL (4.20-6.10); RDW 13.1 % (11.5-14.5)
[2019-06-01 04:00] VITALS: BP 166/91
[2019-06-01 04:11] LABS: ANION GAP 14.9 mmol/L (8-16); CALCIUM 8.3 mg/dL (8.5-10.1); CARBON DIOXIDE 22.7 mmol/L (21.0-32.0); CREATININE - SERUM 1.2 mg/dL (0.6-1.3); MAGNESIUM - SERUM 1.5 mg/dL (1.8-2.4); PHOSPHOROUS 2.7 mg/dL (2.5-4.9); POTASSIUM - SERUM 3.6 mmol/L (3.5-5.1)
--- NOTE | 2019-06-01 04:11 | NUR ---
PT LYING IN BED RESTING WITH EYES CLOSED. EASILY AWAKEN WITH VOICE STIULATION. NO SIGNS OF DISTRESS NOTED. NO COMPLAINTS AT THIS TIME. CALL LIGHT WITH IN REACH WILL CONTINUE TO MONITOR
--- NOTE | 2019-06-01 07:10 | NUR ---
ORTHOSTATIC VS LAYIN/82, SITTIN/84, STANDIN/64. HR 96
[2019-06-01 10:08] VITALS: BP 160/82
--- NOTE | 2019-06-01 10:18 | NUR ---
LEFT HAND 20G IV OUT. PT STATES HE WILL DC TODAY AND DOES NOT WANT ANOTHER IV PLACED. I VERBALIZED UNDERSTANDING.
--- NOTE | 2019-06-01 10:29 | NUR ---
P.Padma. GOT PT UP AND WALKED A LAP AROUND FRASER. PT HAS NO DIZZINESS. PT STATES "I FEEL FINE." PT NOW SITTING IN RECLINER. Alayna. SIGNED OFF ON PT AND STATES HE IS READY FROM THEIR STANDPOINT FOR DC.
--- NOTE | 2019-06-01 13:00 | NUR ---
CALLED [facility] AND THEY STATED THEY WILL BRING JACKIE HOSE.
--- NOTE | 2019-06-01 13:03 | NUR ---
I have reviewed this patient and I concur with the Shift Assessment completed by the Licensed Practical Nurse today this shift.
[2019-06-01] MEDS ORDERED: CAPTOPRIL25 MG PO (13:14)
--- NOTE | 2019-06-01 14:39 | NUR ---
TELEMTRY DC'D. NO IV. BILATERAL THIGH HIGH JACKIE HOSE PLACED ON PT AND INSTRUCTIONS GIVEN ON JACKIE HOSE. DISCHARGE INSTRUCTIONS GIVEN TO PT. PT HAS NO FURTHER QUESTIONS. CHART COPY SIGNED. PT TO CALL RIDE TO COME PICK HIM UP.
--- NOTE | 2019-06-01 14:48 | NUR ---
pt taken out through er entrance via wc with all belongings anf left with family memeber in personal vehicle.
--- NOTE | 2019-06-01 16:37 | MORECARE ---
CASE MANAGEMENT DISCHARGE SUMMARY PATIENT: LIAM KRAUS UNIT: [id number] ADM DATE: 05/30/19 AGE: 73 : 43 SEX: M ROOM/BED: D.2101 AUTHOR: SHERI FOREMAN PHYSICIAN: REFERRING PHYSICIAN: JUAN PABLO GREEN MD DATE OF SERVICE: 06/01/19 Discharge Plan Patient Name: LIAM KRAUS Facility: [facility]:[place] : 1945 Planned Disposition: Home Anticipated Discharge Date: 06/01/19 Discharge Date: 06/01/2019 Expected LOS: 2 Initial Reviewer: [email or web address] Initial Review Date: 06/01/2019 Generated: 06/01/19 5:37 pm Comments DCP- Discharge Planning Updated by [email or web address]: Zohaib Rosen on 06/01/19 3:[address] Patient Name: LIAM KRAUS Admission Status: ER Accout number: [id number] Admission Date: 05-30-2019 : 1945 Admission Diagnosis:SYNCOPE AND COLLAPSE Attending: JUAN PABLO GREEN Current LOS: 2 Anticipated DC Date: 06-01-2019 Planned Disposition: Home Primary Insurance: MEDICARE A & B Discharge Planning Comments: CM RECEIVED DISCHARGE ORDERS, ATTEMPTED TO MEET WITH PT FOR INITIAL ASSESSMENT OF DISCHARGE NEEDS. PT WAS NOT IN ROOM AT APPROXIMATELY 1440 HOURS. NURSE ADVISED PT HAD DISCHARGED HOME. Lance Crewmember/Mlrs Sergeant: Zohaib Rosen Patient Name: LIAM KRAUS Page [id number] at 1637 All edits/amendments must be made on the electronic document DICTATION DATE: 06/01/19 1637 CNA INSTRUCTOR: RANGEL 06/01/19 1637 RPT#: [id number] DC DATE:06/01/19 STATUS: DIS IN [facility] [address] [place] [address] END OF REPORT
== END 2019-06-01 14:49 | disposition home or self-care (01) | DRG 312 ==
LOC: D.ER 15:41 → D.M2 17:13 → OBSVTIME 18:57 → D.M2 05-30 09:07
PROVIDERS: Family Medicine; ADMIT Internal Medicine Nephrology; ATTEND Internal Medicine Nephrology
DX: I95.1 Orthostatic hypotension (principal); G99.0 Autonomic neuropathy in diseases classified elsewhere; E87.6 Hypokalemia; I25.10 Atherosclerotic heart disease of native coronary artery without angina pectoris; E78.5 Hyperlipidemia, unspecified; Z72.89 Other problems related to lifestyle; D64.9 Anemia, unspecified; E83.42 Hypomagnesemia

== ENCOUNTER → 2019-06-13 15:48 | Outpatient (CLI) | payer MEDICARE, BC ==
[~2019-06-13 15:48] MED LIST changes: +CAPTOPRIL25 MG PO
== END | disposition home or self-care (01) ==
LOC: D.CT 15:48
PROVIDERS: ATTEND Clinical Nurse Specialist Family Health
DX: M25.571 Pain in right ankle and joints of right foot (principal)

== ENCOUNTER → 2019-06-27 08:21 | Outpatient (CLI) | payer MEDICARE, BC ==
--- NOTE | 2019-06-28 14:16 | EC ---
PATIENT:LIAM KRAUS DATE OF SERVICE: 06/27/19 SEX: M MEDICAL RECORD: [id number] DATE OF : 43 LOCATION:[facility] AGE OF PATIENT: 73 ADMISSION DATE: 06/27/19 REFERRING PHYSICIAN: INTERPRETING PHYSICIAN: PILI SEALS MD ECHOCARDIOGRAM REPORT ECHO CHARGES 4 ECHO COMPLETE Date: 06/27/19 CLINICAL DIAGNOSIS: HTN/ASSESS EF VALVES, HX CAD AFIB/TR/PI ECHOCARDIOGRAPHIC MEASUREMENTS (adult normal given) AC root (d.<3.7cm) 3.9 cm LV Septum d (<1.2 cm> 1.4 cm Valve Excursion 1.7 cm LV Septum (systole) 2.0 cm Left Atria (s.<4.0cm> 4.3 cm LVPW d(<1.2cm) 1.6 cm RV (d.<2.3cm) 3.6 cm LVPW (sytole) 2.1 cm LV diastole(<5.6CM) 4.9 cm MV E-F(>70mm/sec) cm LV systole 2.5 cm LVOT Diameter 1.9 cm MV exc.(>10mm) 2.0 cm Est.ejection fraction (50-75%) % DOPPLER: LVIT cm/sec A 75.0 cm/sec E 32.0 cm/sec LA cm/sec RVSP 22 mmHg LVOT 100 cm/sec AOP1/2T m/s Asc. Ao 140 cm/sec RVOT 65 cm/sec RA cm/sec PA 102 cm/sec AV Gradient Peak 7.88 mmHg AV Mean 4.15 mmHg AV Area 2.3 cm MV Gradient Peak 4.55 mmHg MV Mean 1.92 mmHg MV Area cm COMMENTS: Network Associate: 2 GERALDO MONTOYA Sheet Roller Operator: 3 Dr. Turpin TAPE# PACS Pericardial Effusion N DATE OF SERVICE: Adequate 2D, color flow imaging, spectral Doppler, and M-Mode Mild LVH. LV internal dimension is normal. Wall motion is normal. EF is greater than or equal to 55%. Aortic valve is tricuspid. No evidence of stenosis by Doppler interrogation. Left atrium is normal at 4.3 cm. Mitral valve shows no prolapse. Trace MR. Right-sided chambers are grossly normal. Mild TR. ECHOCARDIOGRAM REPORT [id number] LIAM KRAUS TRANSINT:[id number] Voice Confirmation ID: [id number] DOCUMENT ID: [id number] PILI SEALS MD at 1416 CC: [id number] DICTATION DATE: 06/28/19816 SHIFT BOSS: 06/28/1947 DEP CLI 06/27/19 [place] [id number] [place] [id number]
== END | disposition home or self-care (01) ==
LOC: D.HCCECHO 08:21
PROVIDERS: ATTEND Internal Medicine Interventional Cardiology
DX: I10 Essential (primary) hypertension (principal)

== ENCOUNTER 2020-05-29 12:30 | Observation (INO) | payer MEDICARE, BC ==
[~2020-05-29] VITALS: Ht 177.8 cm; Wt 71.8 kg
--- NOTE | ~2020-05-29 | HEMODYNAMI ---
PATIENT:LIAM KRAUS MEDICAL RECORD: [id number] : 43 LOCATION:[facility] D.2138 ADMISSION DATE: 05/29/20 Generatedon:113:04 Patient name: LIAM KRAUS Patient #: [id number] SSN: DO B: 1945 Date of study: 05/30/2020 Page: Of Hemodynamic Procedure Report Patient Data Patient Demographics Procedure consent was obtained First Name: LIAM Gender: Male Last Name: NAYANA : 1945 Middle Initial: A Age: 74 year(s) Patient #: [id number] Race: Black Additional ID: [id number] Contact details Address: [address] [place] [address] State: [place] City: [place] Zip code: [address] Past Medical History Allergies: No known allergies Admission Admission Data Admission Date: 05/29/2020 Admission Time: 14:15 Admit Source: Other Insurance Payor: Medicare Room #: D.2138 Height (in.): 70 BSA: 1.89 (m2) Height (cm.): 177.8 BMI: 22.72 (kg/m2) Weight (lbs.): 158.31 Weight (kg.): 71.81 Lab Results Lab Result Date: 05/30/2020 Lab Result Time: 0:00 Biochemistry Name Units Result Min Max BUN mg/dl 19 --(----)*- 7 18 Creatinine mg/dl 1.3 --(---*)-- 0.6 1.3 CBC Name Units Result Min Max Hematocrit % 34.7 *-(----)-- 42 54 Hemoglobin g/dl 12.2 *-(----)-- 13.5 17.5 Procedure Procedure Types Cath Procedure Diagnostic Procedure [facility] w/Coronaries FFR/IVUS FFR Initial Sedation Charges Moderate Sedation 10-24 minutes PCI Procedure Coronary Stent Coronary Stent Initial Hemochron ACT Test Procedure Description Procedure Date Procedure Date: 05/30/2020 Procedure Start Time: 12:38 Procedure End Time: 13:02 Procedure Staff Name Function Vinay Ortiz MD Performing Physician Penny Kirby RT Monitor Vinny Cummins RN Nurse Jayla Andrews RT Scrub Indication Angina Procedure Data Cath Procedure Fluoroscopy Diagnostic fluoroscopy Total fluoroscopy Time: 4.6 time: 4.6 min min Diagnostic fluoroscopy Total fluoroscopy dose: 755 dose: 755 mGy mGy Contrast Material Contrast Material Type Amount (ml) Isovue 300 99 Entry Location Entry Primary Successful Side Size Upsize Upsize Entry Closure Succes sful Closure Location (Fr) 1 (Fr) 2 (Fr) Remarks Device Remarks Femoral Right 5 Fr Exoseal artery Estimated blood loss: 5 ml Diagnostic catheters Device Type Used For End Catheter Placement MULTIPACK JL 4.0 5Fr Left Coronary catheter Angiography MULTIPACK 3DRC 5Fr Right Coronary catheter Angiography MULTIPACK Pigtail 5 Fr LV Angiography catheter Procedure Complications No complications Procedure Medications Medication Administration Route Dosage Oxygen etCO2 Nasal cannula 2 l/min Heparin Flush Bag added to field 2 bags (1000units/500ml NS) 0.9% NaCl I.V. 100 ml/hr Lidocaine 2% added to field 20 Fentanyl I.V. 50 mcg Versed I.V. 1 mg Fentanyl I.V. 50 mcg Versed I.V. 1 mg Heparin Bolus I.V. 5000 units Integrilin (Bolus I.V. 6.8 ml 2mg/ml) Integrilin (Bolus wasted 3.2 ml 2mg/ml) Plavix P.O. 600 mg Hemodynamics Rest BSA: 1.89 (m2) HGB: 12.2 (g/dl) O2 Consumption: Estimated: 205.32 (ml/min) O2 Co nsumption indexed: Estimated:108.63 (ml/min/m) Heart Rate: 53 (bpm) Pressure Samples Time Site Value (mmHg) Purpose Heart Use Rate(bpm) 12:43 LV 157/-2,2 Snapshot 56 Gradients Valve Time Site Site Mean SEP/DFP Peak To Heart Use 1 2 (mmHg) (sec/min) Peak Rate (mmHg) (bpm) Aortic 12:44 LV AO 56 Snapshots Pre Cath Intra NCS Post Cath Vital Signs Time Heart Resp SPO2 etCO2 NIBP (mmHg) Rhythm Pain Sedation Rate (ipm) (%) (mmHg) Status Level (bpm) 12:30:00 53 21 99 179/87(150) NSR 0 (11) 10(A) , No pain 12:35:34 53 16 100 23.7 162/86(140) NSR 0 (11) 10(A) , No pain 12:40:00 53 16 100 21.5 151/82(125) NSR 0 (11) 9(A) , No pain 12:44:22 55 17 100 17.1 154/86(137) NSR 0 (11) 9(A) , No pain 12:48:48 55 16 100 13.3 153/75(126) NSR 0 (11) 9(A) , No pain 12:53:12 53 16 100 18.5 154/78(127) NSR 0 (11) 9(A) , No pain 12:58:28 51 16 100 20.8 147/80(113) NSR 0 (11) 9(A) , No pain 13:02:54 52 15 100 0 162/78(140) NSR 0 (11) 10(A) , No pain Medications Time Medication Route Dose Verified Delivered Reason Notes Effectiveness by by 12:33:56 Oxygen etCO2 2 Vinay Casillas Per physician Nasal l/min St Adolfo Cummins RN cannula 12:34:03 Heparin Flush added 2 Vinay Casillas used for Bag to bags St Adolfo Cummins RN procedure (1000units/500ml field MENDOZA NS) 12:34:12 0.9% NaCl I.V. 100 Vinay Casillas Per physician ml/hr St Adolfo Cummins RN, MD 12:34:22 Lidocaine 2% added 20ml Vinay Casillas for local to vial St Adolfo Cummins RN anesthetic field MENDOZA 12:38:13 Fentanyl I.V. 50 Vinay Casillas for sedation [facility] [place] [facility] Adolfo Cummins RN, MD 12:38:20 Versed I.V. 1 mg Vinay Casillas for sedation St Adolfo Cummins RN, MD 12:53:54 Fentanyl I.V. 50 Vinay Casillas for sedation [facility] [place] [facility] Adolfo Cummins RN, MD 12:53:58 Versed I.V. 1 mg Vinay Casillas for sedation St Adolfo Cummins RN, MD 12:54:07 Heparin Bolus I.V. 5000 Vinay Casillas for units St Adolfo Cummins RN anticoagulation 12:54:25 Integrilin I.V. 6.8 Vinay Casillas for (Bolus 2mg/ml) ml St Adolfo Cummins RN anticoagulation 12:59:22 Integrilin wasted 3.2 Vinay Casillas for (Bolus 2mg/ml) ml St Adolfo Cummins RN anticoagulation 12:59:35 Plavix P.O. 600 Vinay Casillas for mg St Adolfo Cummins RN antiplatelet MD therapy Procedure Log Time Note 12:12:26 Procedure Status Urgent Heart Cath (IP). 12:12:28 Vinny Cummins RN sent for patient. Start room use. 12:12:30 Time tracking: Regular hours (M-F 7:00 - 5:00) 12:12:34 Plan of Care:Hemodynamics will remain stable., Cardiac rhythm will remain stable., Comfort level will be maintained., Respiratory function will remain adequate., Patient/ family verbilizes understanding of procedure., Procedure tolerated without complication., Recovers from procedure without complications.. 12:14:02 Admit Source: Other 12:14:07 Insurance Payor : Medicare 12:14:17 Patient Height : 70 inches 12:14:21 Patient Weight : 158.31 lbs 12:18:04 Lab Result : BUN 19 mg/dl 12:18:04 Lab Result : Hematocrit 34.7 % 12:18:04 Lab Result : Hemoglobin 12.2 g/dl 12:18:04 Lab Result : Creatinine 1.3 mg/dl 12:18:14 Diagnostic Cath Status : Urgent 12:18:31 Indication : Angina 12:19:11 Risk of Mortality: 0.3 12:19:14 Risk of blood transfusion: 2.1 12:19:18 Risk of MARCK: 2.4 12:19:24 Lab results completed and on chart. 12:19:40 Is patient on blood thinner?No 12:19:52 Is the patient allergic to Iodine/contrast media? No. 12:20:18 H&P Date Dictated: 05/29/2020 Within 30 days and on chart.. 12:20:27 Use device set Femoral Dx 12:20:37 ACIST Syringe (29131) opened to sterile field. 12:20:37 Bag Decanter () opened to sterile field. 12:20:39 Medline Cath Pack ([id number]) opened to sterile field. 12:20:41 ACIST Hand Control (26562) opened to sterile field. 12:20:43 ACIST Manifold (52737) opened to sterile field. 12:20:45 DIAGNOSTIC Multipack 5Fr catheter set (CL7825) opened to sterile field. 12:20:49 SHEATH 5FR Platina (PNN272) opened to sterile field. 12:20:50 EMERALD Guide Wire (248-350) opened to sterile field. 12:22:27 Patient received from PCU to CCL 2 Alert and oriented. Tansferred to table in Supine position. 12::30 Signed procedure consent form obtained from patient. 12::31 Warm blankets applied, and annalisa hugger turned on for patient comfort. 12::31 Correct patient and procedure confirmed by team. 12::31 ECG and BP/O2 sat monitors applied to patient. 12::34 Full Disclosure recording started 12::44 Vital chart was started 12::52 Rhythm: sinus bradycardia 12::55 Pre-procedure instructions explained to patient. 12::55 Pre-op teaching completed and patient verbalized understanding. 12:28:58 Family in patients room. 12:29:00 Patient NPO since Midnight. 12:29:11 Patient allergic to No known allergies 12:29:23 ACC The patient was administered the following blood thiners within the last 24 hours: None 12:29:28 Bleeding risk 2.1%. 12:29:29 Patient diabetic? No. 12:29:35 Previous problem with sedation/anesthesia? No ? 12:29:38 Snore? Yes 12:29:40 Sleep apnea? No 12:29:42 Deviated septum? No 12:29:43 Opens mouth fully? Yes 12:29:43 Sticks out tongue? Yes 12:29:53 Airway obstruction? Yes Sleep apnea 12:30:04 Dentures? No ? 12:30:09 Pre procedure: right dorsailis pedis pulse 2+ Normal; easily identifiable; not easily obliterated 12:30:12 Patient pain scale 0/10 ?. 12:30:22 IV patent on arrival in right forearm with 0.9% NaCl at [facility] 12:30:28 Right groin area was prepped with chlora-prep and draped in sterile fashion 12:30:29 Alarms reviewed by R. N. 12:30:30 Sharps counted by scrub and verified by R.N. 12:33:56 Baseline sample Acquired. 12:33:56 Oxygen 2 l/min etCO2 Nasal cannula was administered by Vinny Cmumins RN; Per physician; Verbal order read back and verified. 12:34:03 Heparin Flush Bag (1000units/500ml NS) 2 bags added to field was administered by Vinny Cummins RN; used for procedure; Verbal order read back and verified. 12:34:12 0.9% NaCl 100 ml/hr I.V. was administered by Vinny Cummins RN; Per physician; Verbal order read back and verified. 12:34:22 Lidocaine 2% 20ml vial added to field was administered by Vinny Cummins RN; for local anesthetic; Verbal order read back and verified. 12:38:06 Final Timeout: patient, procedure, and site verified with staff and physician. All members of the team are in agreement. 12:38:07 Right groin site verified by team. 12:38:10 Fire Safety Assessment: A--An alcohol-based skin anteseptic being used preoperatively., C--Open oxygen or nitrous oxide is being used., D--An ESU, laser, or fiber-optic light is being used. 12:38:13 Fentanyl 50 mcg I.V. was administered by Vinny Cummins RN; for sedation; Verbal order read back and verified. 12:38:14 Physical assessment completed. ASA score P 2 - A patient with mild systemic disease as per Vinay Oritz MD. 12:38:19 2) 60-89 Mildly reduced kidney function, and other findings (as for stage 1) point to kidney disease. 12:38:20 Versed 1 mg I.V. was administered by Vinny Cummins RN; for sedation; Verbal order read back and verified. 12:38:22 Maximum allowable contrast dose (3.7 X eGFR X 0.75)194 ml. 12:38:25 Sedation plan: IV Moderate Sedation Medication:Versed, Fentanyl 12:38:28 Procedure started. 12:38:33 Local anesthetic to right femoral artery with Lidocaine 2% by Vinay Ortiz MD.INITIAL ACCESS ONLY 12:38:45 A 5 Fr sheath was inserted into the Right Femoral artery 12:39:22 A MULTIPACK JL 4.0 5Fr catheter was advanced over the wire and used for Left Coronary Angiography. 12:39:45 Zero performed for pressure channel P1 12:41:12 Catheter removed. 12:41:20 A MULTIPACK 3DRC 5Fr catheter was advanced over the wire and used for Right Coronary Angiography. 12:41:25 Zero performed for pressure channel P1 12:42:45 Catheter removed. 12:42:53 A MULTIPACK Pigtail 5 Fr catheter was advanced over the wire and used for LV Angiography. 12:43:59 LV gram done using DUPREE 12:44:05 EF : 55 % 12:44:20 Catheter removed. 12:44:45 GUIDE 6FR HS I catheter (LA6HSI) opened to sterile field. 12:45:33 SHEATH 6FR Platina (OCF134) opened to sterile field. 12:45:34 INFLATOR Merit BasixCompak (RO5214) opened to sterile field. 12:45:35 [place] OmniWire (86429) opened to sterile field. 12:45:48 6 Fr HS 1 guide catheter was inserted over the wire 12:46:25 ACC Pre-intervention XIOMARA Flow is 3. 12:48:41 Pressure wire advanced. 12:50:05 Wire advanced across lesion. 12:52:01 pRCA lesion measured at 0.9 with IFR 12:53:54 Fentanyl 50 mcg I.V. was administered by Vinny Cummins RN; for sedation; Verbal order read back and verified. 12:53:56 Place stent Inflation Number: 1 A JACINTO RX 3.0 x 15 stent ([id number]) was prepped and advanced across the Prox RCA . The stent was deployed at 0 PASCUAL for 0:18 (min:sec) . 12:53:58 Versed 1 mg I.V. was administered by Vinny Cummins RN; for sedation; Verbal order read back and verified. 12:54:05 Inflation number: 2 The stent balloon was then re-inflated across the Prox RCA to 12 PASCUAL for 0:00 (min:sec) . 12:54:07 Heparin Bolus 5000 units I.V. was administered by Vinny Cummins RN; for anticoagulation; Verbal order read back and verified. 12:54:25 Integrilin (Bolus 2mg/ml) 6.8 ml I.V. was administered by Vinny Cummins RN; for anticoagulation; Verbal order read back and verified. 12:55:02 Stent catheter was removed intact over wire. 12:55:03 Wire removed. 12:55:03 Guide catheter removed. 12:55:17 Sheath removed intact; hemostasis achieved with Exoseal to the Right Femoral artery. 12:55:19 Procedure ended.(Physican Out) 12:55:31 Tegaderm 4 x 4 (1626W) opened to sterile field. 12:55:39 Fluoroscopy time 04.60 minutes. 12:55:45 Fluoroscopy dose: 755 mGy 12:55:45 Flurop Dose total: 755 12:56:08 Dose Area Product 137 mGy/cm. 12:56:12 Contrast amount:Isovue 300 99ml. 12:56:13 Maximum allowable dose exceeded? No. 12:56:14 Sharps counted by scrub and verified by R.N. 12:57:53 Insertion/operative site no bleeding no hematoma. 12:57:56 Post-op/insertion site Right Femoral artery dressed using a 4 x 4 and Tegaderm. 12:58:00 Post right femoral artery:stable, clean and dry 12:58:02 Post Procedure Pulses reassessed and unchanged 12:58:06 Post-procedure physical assessment completed. ASA score P 2 - A patient with mild systemic disease as per Vinay Ortiz MD. 12:58:08 Post procedure rhythm: unchanged. 12:58:10 Estimated blood loss: 5 ml 12:58:12 Post procedure instruction explained to patient.Patient verbalizes understanding. 12:58:13 Patient needs reinforcement of post procedure teaching. 12:58:49 Procedure type changed to Cath procedure, Diagnostic procedure, LHC, LHC w/Coronaries, FFR/IVUS, FFR Initial, Sedation Charges, Moderate Sedation 10-24 minutes, PCI procedure, Coronary Stent, Coronary Stent Initial, Hemochron ACT Test 12:59:22 Integrilin (Bolus 2mg/ml) 3.2 ml wasted was administered by Vinny Cummins RN; for anticoagulation; Verbal order read back and verified. 12:59:35 Plavix 600 mg P.O. was administered by Vinny Cummins RN; for antiplatelet therapy; Verbal order read back and verified. 13:00:21 EXOSEAL 6Fr (EX600) opened to sterile field. 13:01:15 Procedure and supply charges have been captured, reviewed, submitted and are correct. 13:01:19 Procedure Complication : No complications 13:01:23 Operative report dictated upon procedure completion. 13:01:45 ACT drawn and resulted at 193 seconds. (normal therapeutic range 180-240 seconds). 13:01:57 Report given to PCU. 13:02:03 See physician's report for complete and final results. 13:02:44 Patient transfered to PCU with Bed. 13:02:47 Procedure ended. 13:02:47 Full Disclosure recording stopped 13:03:30 Penny Kirby RT(R) was relieved by Vinny Cummins RN as monitoring person 13:04:00 Vital chart was stopped Intervention Summary Intervention Notes Time ActionType Lesion and Equipment Used Action# Pressure Duration Attributes 12:53:56 Place stent Prox RCA JACINTO RX 3.0 x 1 0 00:18 15 stent ([id number]) 12:54:05 Reinflate Prox RCA JACINTO RX 3.0 x 2 12 00:00 stent 15 stent balloon ([id number]) Device Usage Item Name Manufacture Quantity Catalog Hospital Part [facility] Lot# / Number Charge Number Stock Stock Serial# Code ACIST Syringe Acist 1 82191 663573 191923 416919 20 (48015) Medical Systems Inc Bag Decanter Microtek 1 2001S 082644 57162 134544 5 (2001S) Medical Inc. Medline Cath Medline 1 [id number] 760721 04333 356448 5 Pack ([id number]) ACIST Hand Acist 1 53929 638685 579021 790077 5 Control Medical (71369) Systems Inc ACIST Manifold Acist 1 33907 259283 245014 295000 5 (63550) Medical Systems Inc DIAGNOSTIC Cardinal 1 TH3041 568570 17548 375512 30 Multipack 5Fr Health catheter set (GH7077) SHEATH 5FR Terumo 1 YCZ221 204549 831413 541467 5 Platina (MZS767) EMERALD Guide Cardinal 1 502-455 335522 085008 992146 5 Wire (502-455) Health MULTIPACK JL Cardinal 1 969480 5 4.0 5Fr Health catheter MULTIPACK 3DRC Cardinal 1 204107 5 5Fr catheter Health MULTIPACK Cardinal 1 604153 5 Pigtail 5 Fr Health catheter GUIDE 6FR HS I Medtronic 1 LA6HSI 625195 14328 215541 1 catheter (LA6HSI) SHEATH 6FR Terumo 1 PSD525 103886 541564 389056 40 Platina (QWT283) INFLATOR Merit Merit 1 JH9066 740475 665446 187511 15 BasixCompak Medical (NE6037) [place] Chalkyitsik 1 7236621 433766 69160 9978 5 OmniWire (24356) JACINTO RX 3.0 x Medtronic 1 [id number] 308990 7855713 242541 5 [id number] 15 stent ([id number]) Tegaderm 4 x 4 3M 1 1626W 134515 722996 651366 5 (1626W) EXOSEAL 6Fr Cardinal 1 EX600 178069 220553 388762 10 (EX600) Health Signature Audit [place] Stage Time Signature Unsigned Intra-Procedure 05/30/2020 Penny 1:03:05 PM Counts RT(R) Intra-Procedure 05/30/2020 Vinny Cummins 1:03:58 PM RN; Vinay Ortiz MD Signatures Performing Physician : Signature : Vinay Ortiz MD Date : Time : Monitor : Penny Signature : Counts RT Date : Time : Nurse : Vinny Cummins RN Signature : Date : Time : [place] [address] [place] [address]
[~2020-05-29 12:30] MED LIST changes: +BAYER ASPIRIN325 MG PO; +CARDIZEM CD180 MG PO; +LANOXIN125 MCG PO; +LIPITOR20 MG PO; +LOPRESSOR25 MG PO; +MIDODRINE HCL5 MG PO
[2020-05-29 12:50] LABS: BASOPHILS 0.3 % (0-2); EOSINOPHILS 3.7 % (0-7); HEMATOCRIT 36.6 % (42.0-54.0); HEMOGLOBIN 12.9 g/dL (13.5-17.5); LYMPHOCYTE ABS# 0.92 10x3/uL (1.32-3.57); LYMPHOCYTES 31.2 % (15-50); MCH 32.5 pg (26.0-34.0); MCHC 35.2 g/dL (31.0-37.0); MCV 92.2 fL (80.0-100.0); MEAN PLATELET VOLUME 10.7 fL (7.4-10.4); MONOCYTES 11.5 % (2-11); NEUTROPHIL ABS# 1.57 10x3/uL (1.78-5.38); NEUTROPHILS 53.3 % (40-80); RBC 3.97 10x6/uL (4.20-6.10); RDW 12.6 % (11.5-14.5)
[2020-05-29 12:56] LABS: PLATELET COUNT 190 10x3/uL (130-400)
[2020-05-29 13:00] LABS: APTT 32.6 SECONDS (22.8-39.4); INR 1.07 (0.85-1.17); PROTIME 12.9 SECONDS (11.6-15.0)
[2020-05-29 13:15] LABS: ALBUMIN 3.4 g/dL (3.4-5.0); ALKALINE PHOSPHATASE 82 U/L (30-120); ALT (SGPT) 28 U/L (10-68); CALC OSMOLALITY 280 mosm/kg (275-300); CALCIUM 8.6 mg/dL (8.5-10.1); CARBON DIOXIDE 29.5 mmol/L (21.0-32.0); CHLORIDE - SERUM 104 mmol/L (98-107); CKMB 0.3 U/L (0.0-3.6); CREATINE KINASE 54 UL (21-232); CREATININE - SERUM 1.5 mg/dL (0.6-1.3); GLUCOSE 99 mg/dL (74-106); MAGNESIUM - SERUM 1.6 mg/dL (1.8-2.4); PROTEIN - SERUM 7.6 g/dL (6.4-8.2); SODIUM 140 mmol/L (136-145); TROPONIN-I 0.035 ng/mL (0.000-0.060); UREA NITROGEN 18 mg/dL (7-18); eGFR NON AFRICAN AMERICAN 48 mL/min (90-120)
[2020-05-29 13:24] LABS: POTASSIUM - SERUM 2.9 mmol/L (3.5-5.1)
[2020-05-29 15:02] LABS: CKMB 0.3 U/L (0.0-3.6); CREATINE KINASE 53 UL (21-232)
[2020-05-29 15:25] VITALS: BP 167/95
[2020-05-29 16:32] VITALS: BP 171/74; Ht 177.8 cm; Wt 71.8 kg
--- NOTE | 2020-05-29 18:27 | NUR ---
TELEMETRY NOTIFIED NURSE OF HEART RATE 39, VITAL SIGNS TAKEN AND BLOOD PRESSURE 126/60, HEART RATE 47. PATIENT ASYMPTOMATIC. ALFRED DOMINGUEZ APRN NOTIFIED AND DIG LAB ORDERED. RUSS CORRALES NOTIFIED AND ATROPINE PRN ORDERED.
[2020-05-29 20:00] VITALS: BP 133/62
[2020-05-29 20:52] LABS: CKMB 0.4 U/L (0.0-3.6); CREATINE KINASE 46 UL (21-232); TROPONIN-I 0.035 ng/mL (0.000-0.060)
[2020-05-30 00:42] VITALS: BP 146/67
--- NOTE | 2020-05-30 01:05 | NUR ---
PT RESTING IN BED, STATES LONG HE DOESN'T MOVE HE IS OK. BUT WHEN HE MOVES ABOUT HE OFTEN BECOMES DIZZY WITH HIS LAST SYNCOPAL EPISODE WITH A FALL WAS LAST WEEK. HAS DEALT WITH THIS FOR THE PAST 11 YEARS. HR DOES RUN YOU DROPPING INTO THE MID 30'S ASYMPTOMATIC AT PRESENT. AT BEDSIDE.
[2020-05-30 03:16] LABS: BASOPHILS 0.6 % (0-2); EOSINOPHILS 2.4 % (0-7); HEMATOCRIT 34.7 % (42.0-54.0); HEMOGLOBIN 12.2 g/dL (13.5-17.5); IMMATURE GRANULOCYTES 0.6 % (0-5); LYMPHOCYTE ABS# 0.64 10x3/uL (1.32-3.57); LYMPHOCYTES 19.4 % (15-50); MCH 32.4 pg (26.0-34.0); MCHC 35.2 g/dL (31.0-37.0); MEAN PLATELET VOLUME 10.5 fL (7.4-10.4); MONOCYTES 11.2 % (2-11); NEUTROPHIL ABS# 2.17 10x3/uL (1.78-5.38); NEUTROPHILS 65.8 % (40-80); PLATELET COUNT 179 10x3/uL (130-400); RBC 3.77 10x6/uL (4.20-6.10); RDW 12.6 % (11.5-14.5); WBC 3.3 10x3/uL (4.8-10.8)
[2020-05-30 03:53] LABS: ALBUMIN 3.2 g/dL (3.4-5.0); ALKALINE PHOSPHATASE 77 U/L (30-120); ALT (SGPT) 26 U/L (10-68); BILIRUBIN - TOTAL 0.76 mg/dL (0.2-1.3); CALC OSMOLALITY 279 mosm/kg (275-300); CALCIUM 8.4 mg/dL (8.5-10.1); CHLORIDE - SERUM 102 mmol/L (98-107); CKMB 0.5 U/L (0.0-3.6); CREATINE KINASE 52 UL (21-232); CREATININE - SERUM 1.3 mg/dL (0.6-1.3); GLUCOSE 99 mg/dL (74-106); MAGNESIUM - SERUM 1.5 mg/dL (1.8-2.4); SODIUM 139 mmol/L (136-145); TROPONIN-I 0.033 ng/mL (0.000-0.060); UREA NITROGEN 19 mg/dL (7-18); eGFR NON AFRICAN AMERICAN 57 mL/min (90-120)
[2020-05-30 04:07] VITALS: BP 143/74
--- NOTE | 2020-05-30 07:00 | NUR ---
PT LYING IN BED. RESP EVEN AND UNLABORED. AAOX4. AT BEDSIDE. PT DENIES NEEDS AT THIS TIME. CLIR. BED IN LOWEST POSITION. SIDE RAILS X2
[2020-05-30 09:06] VITALS: BP 126/62
[2020-05-30 09:14] LABS: CHOL - HDL RATIO 1.9 ratio (2.3-4.9); LDL-HDL RATIO 0.7 ratio (1.5-3.5)
--- NOTE | 2020-05-30 12:18 | NUR ---
PT LEFT UNIT FOR HEART CATH ACCOMPANIED BY HOSPITAL STAFF. PRE OP MEDS ADMINISTERD PER ORDER
[2020-05-30] MEDS ORDERED: PLAVIX75 MG PO (13:13)
--- NOTE | 2020-05-30 13:20 | NUR ---
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 MONITORS ESTAB. SEE POST CATH TANK TERMINAL GAUGER FLOWSHEETS. ALARMS ON AND C/L IN REACH.
--- NOTE | 2020-05-30 13:35 | NUR ---
VOIDED 300CC CLEAR, YELLOW URINE IN URINAL. R GROIN EXOSEAL SITE C/D/I, NO S/S BLEEDING OR HEMATOMA. R LEG/FOOT WARM WITH PALP PULSES AND CAP REFILL WNL. AT BS. ALARMS ON AND C/L IN REACH.
--- NOTE | 2020-05-30 13:53 | NUR ---
DR. SEALS IN TO SEE PT, UPDATED PT AND - PLAN FOR CARDIAC REHAB - ORDER IN - WILL NOTIFY BRO Hidalgo
--- NOTE | 2020-05-30 14:05 | NUR ---
PT RESTING QUIETLY. R GROIN SITE SOFT, NO S/S BLEEDING OR HEMATOMA. PULSES PALP. R LEG/FOOT WARM WITH PALP PULSES. VSS. ALARMS ON AND C/L IN REACH.
--- NOTE | 2020-05-30 14:20 | NUR ---
R GROIN SITE SOFT, NO S/S BLEEDING OR HEMATOMA. PULSES PALP. AT BS. PT RESTING QUIETLY. ALARMS ON AND C/L IN REACH.
--- NOTE | 2020-05-30 14:50 | NUR ---
PT RESTING QUIETLY, VSS. R GROIN SITE SOFT, NO S/S BLEEDING OR HEMATOMA. PULSES PALP. PT DENIES PAIN OR NEEDS. ALARMS ON AND C/L IN REACH.
--- NOTE | 2020-05-30 15:20 | NUR ---
R GROIN SITE SOFT, NO S/S BLEEDING OR HEMATOMA. PULSES PALP. VSS. PT RESTING QUIETLY. DENIES PAIN OR NEEDS. ALARMS ON AND C/L IN REACH.
--- NOTE | 2020-05-30 15:45 | NUR ---
BRO WITH CARDIAC REHAB HERE TO SEE PT AND HIS - UPDATE GIVEN AND QUESTIONS ANSWERED.
--- NOTE | 2020-05-30 16:06 | NUR ---
PATIENT IS SCHEDULED FOR OUTPATIENT CARDIAC REHAB May @ 9 AM, KEITH WAS GIVEN INFORMATION ON CARDIAC REHAB. WILL CALL TO REMIND OF APPOINTMENT NEXT WEEK.
--- NOTE | 2020-05-30 16:15 | NUR ---
R GROIN SITE SOFT, NO S/S BLEEDING OR HEMATOMA. PULSES PALP. HOB ELEVATED, SANDWICH TRAY AND TEA PROVIDED. ALARMS ON AND C/L IN REACH.
--- NOTE | 2020-05-30 16:40 | NUR ---
PT TOLERATED DIET. NO N/V. VSS. R GROIN SITE C/D/I. PT VOIDED 250ML CLEAR, YELLOW URINE IN URINAL.
--- NOTE | 2020-05-30 16:45 | NUR ---
R GROIN SITE SOFT, NO S/S BLEEDING OR HEMATOMA. PULSES PALP. PIV D/C'D INTACT, DSG APPLIED. PT ASSISTED UP WITH GETTING DRESSED.
--- NOTE | 2020-05-30 17:00 | NUR ---
ALL DISCHARGE INSTRUCTIONS REVIEWED WITH PT AND HIS - INCLUDING RESTRICTIONS, MEDS AND F/U APPOINTMENTS. BOTH VERBALIZE UNDERSTANDING.
--- NOTE | 2020-05-30 17:14 | CN ---
PATIENT NAME:PAULINO FABIAN MEDICAL RECORD: [id number] : 43 LOCATION:[facility] ADMIT DATE: 05/29/20 ACCOUNT: [id number] CONSULTING PHYSICIAN: PILI SEALS MD REFERRING PHYSICIAN: NITHIN ROUSE MD DATE OF CONSULTATION: 05/30/2020 HISTORY OF PRESENT ILLNESS: Paulino Fabian is a 74-year-old gentleman well known to me with a history of coronary artery disease, has a history of atrial fibrillation, controlled on digoxin, orthostatic hypotension. Actually saw him last week, was doing fairly well with some intermittent angina versus deconditioning was being followed clinically, had onset of rest symptomatology beginning a day prior to admission, radiating to the left jaw and arm. Typically stays quite active. We are asked to see him concerning his cardiovascular status. PAST MEDICAL HISTORY: Includes; 1. History of hypertension. 2. Atrial fibrillation. 3. Autonomic insufficiency with orthostatic hypotension as well. MEDICATIONS: Include potassium 10 mg p.o. b.i.d., aspirin 325 every day, diltiazem 180 every day, atorvastatin 20 every day, digoxin 0.125 every day, ProAmatine 5 mg p.o. every morning. SOCIAL HISTORY: Nonsmoker, nondrinker. Does try to walk on a daily basis. Easily takes care of all his ADLs. REVIEW OF SYSTEMS: The patient reports easy bruising but reports no swollen glands. The patient reports no fever, no night sweats, no significant weight gain, no significant weight loss. No significant exercise tolerance. The patient reports no dry eyes, no irritation, no vision change. Patient reports no difficulty hearing and no ear pain. Patient reports no frequent nose bleeds or nose and sinus problems. Patient reports on arm pain on exertion. No shortness of breath while lying down. No history of heart murmur. Patient reports no cough, no wheezing or coughing up blood. Patient reports no abdominal pain, no vomiting. Normal appetite. No diarrhea and not vomiting blood. No nausea and no constipation. Patient reports no incontinence. No difficulty urinating. No hematuria. No increased frequency. Patient reports no muscle aches. No weakness, no arthralgias, no back pain. No swelling of the extremities. Patient reports no abnormal mole, no jaundice, no rashes. Reports no loss of consciousness. No weakness and no numbness. No seizures, dizziness, or headaches. The patient reports no depression, no sleep disturbance, feeling safe in a relationship and no alcohol abuse. Patient reports on fatigue. Reports no runny nose or sinus pressure. No itching, no hives, and no frequent sneezing. PHYSICAL EXAMINATION: GENERAL: Pleasant, well-developed, no acute distress. VITAL SIGNS: Blood pressure 143/74, pulse 46 and regular. HEENT: Normocephalic, atraumatic. NECK: No JVD or bruit. HEART: Regular, II/ systolic ejection murmur. LUNGS: Good air excursion. ABDOMEN: Soft and nontender. CONSULT REPORT [id number] PAULINO FABIAN EXTREMITIES: Pulses 2+. No edema. DIAGNOSTIC DATA: EKG shows nonspecific ST-T changes. IMPRESSION: Acute coronary syndrome, known coronary disease. PLAN: For angiography and intervention based on the above. TRANSINT:[id number] Voice Confirmation ID: [id number] DOCUMENT ID: [id number] PILI SEALS MD at 1714 CC: [id number] DICTATION DATE: 05/30/20912 [employer]ER: 05/30/20 1141 ADM IN [facility] [address] [place] [address]
--- NOTE | 2020-05-30 17:15 | NUR ---
PT D/C'D VIA WC TO PRIVATE VEHICLE WITH ALL PAPERWORK AND BELONGINGS.
[2020-05-30] MEDS ORDERED: BAYER CHEWABLE81 MG PO (17:21)
--- NOTE | 2020-06-01 09:56 | OP ---
PATIENT NAME: LIAM KRAUS MEDICAL RECORD: [id number] :43 [facility] ADMISSION DATE:05/29/20 SURGEON: PILI SEALS MD DATE OF OPERATION: 05/30/2020 PROCEDURE: Left heart catheterization, selective coronary angiography plus IFR to the right plus PTCA stent to the right. FINDINGS: Left ventriculography in 30-degree DUPREE view: Normal wall motion and normal systolic function. CORONARY ANATOMY: LEFT MAIN: Left main is free of disease. LAD: LAD has a previously placed stent is widely patent. No progression of diomede disease. No evidence of restenosis. CIRCUMFLEX: Free of disease. RIGHT CORONARY ARTERY: Right coronary has about 80% stenosis. IFR wire was borderline at 0.9; however, given his recent onset of symptomatology since a clinic visit approximately 1 week ago, he had no recent angina. It was felt this was culprit particularly given ST-T changes on his EKG. I therefore used a hockey stick guide and indwelling IFR wire. Stent deployed was a 3.0 x 15 mm drug-eluting stent up to 14 atmospheres for 45 seconds. Final angiography showed excellent resolution of 80% stenosis. There was excellent flow in the distal vasculature. Sheath closed with ExoSeal device. Plavix loaded in the lab. TRANSINT:[id number] Voice Confirmation ID: [id number] DOCUMENT ID: [id number] PILI SEALS MD at 0956 CC: [id number] DICTATION DATE: 05/30/20 1305 [employer] HELPER: 05/30/20 2226 DIS IN 05/30/20 [id number] [place] [address]
== END 2020-05-30 17:15 | disposition home or self-care (01) ==
LOC: D.ER 12:30 → D.M2 14:15 → OBSVTIME 14:15 → D.CLR 05-30 13:20
PROVIDERS: Family Medicine; Internal Medicine Interventional Cardiology; ADMIT Emergency Medicine; ATTEND Emergency Medicine
DX: I25.10 Atherosclerotic heart disease of native coronary artery without angina pectoris (principal); I10 Essential (primary) hypertension; E78.5 Hyperlipidemia, unspecified; E87.6 Hypokalemia